=== PATIENT | female | born 1955 | race African-American/Black ===

== ENCOUNTER → 2018-08-07 | Outpatient (CLI) | payer BC ==
[2018-08-07 09:00] VITALS: RESP 20; TEMP 98.2; BMI 39.1
[2018-08-07 09:05] VITALS: BP 200/86; PULSE 66
--- NOTE | 2018-08-07 10:28 | P.HPOB ---
History of Present Illness H&P Date: 08/07/18 Chief Complaint: The patient is here for her routine gynecologic exam. This is a 62-year-old with an LMP of approximately 1994. She is status post endometrial ablation at that time and has been amenorrheic since then. She denies hot flashes or hot flashes in the past. It has been about 13 months since her last pelvic exam. She states she had a mammogram in January 2018. She is without gynecological complaints and denies any postmenopausal bleeding. Review of Systems The patient has gained 8 pounds over the last year. She denies respiratory, cardiac, or G.I. problems. Past Medical History Past Medical History: Diabetes Mellitus (Type II diabetes), Eye Disorder, Hyperlipidemia, Hypertension, Osteoarthritis (OA), Renal Disease (Stage IV chronic renal disease), Sleep Apnea/CPAP/BIPAP Additional Past Medical History / Comment(s): glaucoma, umbilical hernia, arthritis. 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 She has not had any since then. History of Any Multi-Drug Resistant Organisms: None Reported Past Surgical History: Section (x3), Cholecystectomy, Heart Catheterization, Tubal Ligation, Uterine Ablation () Additional Past Surgical History / Comment(s): cervical spine fusion. [id number] (). Past Anesthesia/Blood Transfusion Reactions: Motion Sickness Additional Past Anesthesia/Blood Transfusion Reaction / Comment(s): pt states hard to wake up from anesthesia. 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 - Past Family History Father Family Medical History: Hypertension, Renal Disease Additional Family Medical History / Comment(s): HAD Dialysis Mother Family Medical History: Coronary Artery Disease (CAD), Hypertension, Renal Disease Additional Family Medical History / Comment(s): kidney problems Brother(s) Family Medical History: Cancer, Hypertension Additional Family Medical History / Comment(s): 3 brothers with cancer, one brother had breast cancer, another had bone cancer. Sister(s) Additional Family Medical History / Comment(s): brain anerusym Medications and Allergies Home Medications Medication Instructions Recorded Confirmed Type Lisinopril [Prinivil] 20 mg PO BID 06/08/14 08/07/18 History Rosuvastatin Calcium [Crestor] 5 mg PO Q24HR 07/10/14 08/07/18 History cloNIDine HCL [Catapres] 0.1 mg PO TID PRN 09/30/14 08/07/18 History Carvedilol 25 mg PO BID 10/08/14 08/07/18 History Allopurinol [Zyloprim] 100 mg PO DAILY 08/07/18 08/07/18 History Calcitriol [Rocaltrol] 0.5 mcg PO Q48H 08/07/18 08/07/18 History Chlorthalidone 50 mg PO DAILY 08/07/18 08/07/18 History Latanoprost/Pf [Latanoprost 0.005% 1 drop BOTH EYES HS 08/07/18 08/07/18 History Eye Drop] Repaglinide [Prandin] 0.5 mg PO ONCE 08/07/18 08/07/18 History Allergies Allergy/AdvReac Type Severity Reaction Status Date / Time Sulfa (Sulfonamide Allergy Rash/Hives Verified 08/07/18 08:45 Antibiotics) adhesive AdvReac blisters Verified 08/07/18 08:45 Ggrtqzr-Gmr-Djy Reductase AdvReac Joint Pain Verified 08/07/18 08:45 Inhibitor Exam Vital Signs Temp Pulse Resp BP Pulse Ox 08/07/18 08:53 98.2 F 66 20 200/86 100 Intake and Output 08/06/18 08/07/18 08/07/18 22:59 06:59 14:59 Other: Weight 113.398 kg Repeat blood pressure with the large blood pressure cuff was 158/94. Height 5'7 ", weight 250 pounds, BMI 39.2. This is a well-developed well-nourished heavyset black female who is alert and oriented times 3 in no acute distress. HEENT: Within normal limits. NECK: Supple without mass or thyromegaly. CHEST AND LUNGS: Clear to auscultation. HEART: Regular rate and rhythm. BREASTS: Are without mass or discharge. AXILLARY EXAM: Negative for adenopathy. BACK: Negative for CVA tenderness. ABDOMEN: Soft, nontender, without palpable masses. PELVIC EXAM: Normal external genitalia with mild atrophy. Cervix and vagina appear normal with minimal atrophy. There is no unusual discharge. There is no evidence of prolapse. The uterus is midposition, nongravid size and nontender. There are no palpable adnexal masses or tenderness. RECTAL EXAM: rectovaginal exam is negative for mass or tenderness and is negative for occult blood. EXTREMITIES: Nontender. IMPRESSION: 1. 62-year-old menopausal female with normal gynecologic exam. 2. Elevated blood pressure with history of chronic hypertension. 3. Family history of breast cancer in a brother. PLAN: 1. Pap smear was performed. 2. Self breast awareness was discussed with the patient. 3. The patient states she had a normal mammogram in January 2018. She is to do this yearly. The order slip was given to the patient for this and she will do it in January. 4. Osteoporosis prevention was discussed. I have stressed the importance of adequate calcium, vitamin D and regular exercise. Recommended amounts of calcium and vitamin D were also discussed. Bone density screening was recommended since she has not had this done in the past. The order slip was given to the patient for this. 5. BRCA testing was discussed with the patient because of her brother who had breast cancer. She understands that she is at increased risk for breast cancer because of her family history. She is declining this testing at this time. She will call if she changes her mind. 6. Her elevated blood pressure was discussed. I have recommended that she take her own blood pressure on a regular basis and to follow up with Dr. Guzmán for blood pressure elevations. 7. She will return in one year.
== END ==
LOC: WWCWWP 08:31
PROVIDERS: ATTEND Obstetrics & Gynecology
DX: Z53.9 Procedure and treatment not carried out, unspecified reason (principal)

== ENCOUNTER → 2018-09-21 | Outpatient (CLI) | payer BC ==
--- NOTE | 2018-09-25 17:43 | BD ---
EXAMINATION TYPE: Axial Bone Density DATE OF EXAM: 09/21/2018 COMPARISON: NONE CLINICAL HISTORY: 63 YR OLD FEMALE....ICD10 CODE: Z78.0 POST MENOPAUSAL STATE Height: 65.2 Weight: 246 FRAX RISK QUESTIONS: History of Fracture in Adulthood: YES RISK FACTORS HISTORY OF: History of Wrist Fracture: RT WRIST FX....>50 YRS OLD Family History of Osteoporosis: POSSIBLY MOM, DOWAGER HUMP, NO HIP FX Postmenopausal woman: YES, AT AGE 51 YRS OLD MEDICATIONS: Additional Medications: BP MEDS, DIABETIC MEDS, STATIN FOR CHOLESTEROL, VIT D, CALCIUM Additional History: DIABETIC, HYPERTENSION, CHOLESTEROL EXAM MEASUREMENTS: Bone mineral densitometry was performed using the [employer] System. Bone mineral density as measured about the Lumbar spine is: ----- L1-L4(G/cm2): 1.351 T Score Values are as follows: ----- L1: 1.4 ----- L2: 0.7 ----- L3: 1.6 ----- L4: 1.8 ----- L1-L4: 1.4 Bone mineral density FIRST BONE DENSITY SCAN......BASELINE STUDY Bone mineral density about the R hip (g/cm2): 1.304 Bone mineral density about the L hip (g/cm2): 1.283 T Score values are as follows: -----R Neck: 1.2 -----L Neck: 0.6 -----R Total: 2.4 -----L Total: 2.2 Bone mineral density IS A BASELINE STUDY FRAX%s: THERE IS A 4.0% CHANCE FOR A MAJOR OSTEOPOROTIC FX AND A 0.1% FOR HIP....PROBABILITY OF FX IN 10 YRS TIME IMPRESSION: Normal (Values between +1 and -1 indicate normal bone mass). Consider repeating this study in 5 year s or sooner if there is some new clinical indication. NOTE: T-SCORE=SD OF THE YOUNG ADULT MEAN.
--- NOTE | 2018-09-26 10:32 | P.PN ---
Progress Note - Text Progress Note Date: 09/26/18 OUTPATIENT FOLLOW-UP NOTE TEST(S)/RESULTS: normal bone density test done on 09/21/2018. METHOD OF NOTIFICATION: a message with this result was left on the patient's voicemail. PATIENT COMMENTS: DIAGNOSIS: normal bone density testing DISCUSSION: in the message I reminded her to try to get adequate amounts of calcium, vitamin D and regular exercise. PLAN: repeat bone density testing in 6 to 7 years.
== END | disposition home or self-care (01) ==
LOC: RADBDWWP 10:18
PROVIDERS: ATTEND Obstetrics & Gynecology
DX: Z78.0 Asymptomatic menopausal state (principal)
CPT/HCPCS: 77080

== ENCOUNTER → 2018-09-24 | Outpatient (CLI) | payer BC ==
[2018-09-24 19:32] LABS: Anion Gap 7.2 mmol/L (4.00-12.00); Calcium 9.7 mg/dL (8.7-10.3); Carbon Dioxide 26.8 mmol/L (21.6-31.8); Potassium 4.9 mmol/L (3.5-5.5)
== END | disposition home or self-care (01) ==
LOC: LABWHC1 13:59
PROVIDERS: ATTEND Nurse Practitioner Adult Health
DX: N18.3 Chronic kidney disease, stage 3 (moderate) (principal)
CPT/HCPCS: 36415; 80048

== ENCOUNTER → 2018-11-30 | Day surgery (SDC) | payer BC ==
[2018-11-29 08:23] VITALS: BMI 38.8
[~2018-11-30] MED LIST: LACTATED RINGERS 1,000 ML IV SCH; LIDOCAINE 1% 20 ML VIAL (10MG/ML) FOR IV START INTRADERMA PRN; LIDOCAINE 1% INJ 10MG/ML (20 ML MDV) ONE; PROPOFOL 10 MG/ML 20 ML VIAL IV ONE
[2018-11-30 08:07] VITALS: TEMP 97.2
[2018-11-30 08:15] LABS: Glucose,Whole Blood 112 mg/dL (75-99)
--- NOTE | 2018-11-30 08:48 | P.PCN ---
Date of Procedure: 11/30/18 Procedure(s) Performed: BRIEF HISTORY: Patient is a 63-year-old pleasant -[place] female, scheduled for an elective colonoscopy as a part of evaluation of prior history of colon polyps. Last colonoscopy was 4 years ago. PROCEDURE PERFORMED: Colonoscopy. PREOPERATIVE DIAGNOSIS: History of colon polyps. IV sedation per Anesthesia. PROCEDURE: After informed consent was obtained, the patient, was brought into the endoscopy unit. IV sedation was administered by Anesthesia under continuous monitoring. Digital rectal examination was normal. Initially the Olympus CF-160 flexible video colonoscope was then inserted in the rectum, gradually advanced into the cecum without any difficulty. Careful examination was performed as the scope was gradually being withdrawn. Ileocecal valve and the appendiceal orifice were visualized and appeared normal. Prep was excellent. Mucosa of the cecum, ascending colon, transverse colon, descending colon, sigmoid colon, and rectum appeared normal. Retroflexion was performed in the rectum and no lesions were seen. The patient tolerated the procedure well. IMPRESSION: Normal-appearing colon from rectum to cecum with no evidence of colorectal neoplasia. RECOMMENDATIONS: Findings of this examination were discussed with the patient as well as her family. She was advised to have a repeat surveillance colonoscopy in 5 years..
[2018-11-30 09:19] VITALS: BP 113/70; PULSE 56; RESP 18
== END | disposition home or self-care (01) ==
LOC: ORWHC2ENDO 07:43
PROVIDERS: ATTEND Internal Medicine Gastroenterology
DX: Z12.11 Encounter for screening for malignant neoplasm of colon (principal); Z86.010 Personal history of colon polyps; I10 Essential (primary) hypertension; E78.5 Hyperlipidemia, unspecified; G47.33 Obstructive sleep apnea (adult) (pediatric); Z87.891 Personal history of nicotine dependence; H40.9 Unspecified glaucoma; M10.9 Gout, unspecified; Z98.1 Arthrodesis status; Z79.899 Other long term (current) drug therapy; Z88.5 Allergy status to narcotic agent; Z88.0 Allergy status to penicillin; Z88.8 Allergy status to other drugs, medicaments and biological substances; Z91.09 Other allergy status, other than to drugs and biological substances
CPT/HCPCS: J2001; J2704; G0105; 45378

== ENCOUNTER → 2019-01-29 | Outpatient (CLI) | payer BC ==
[2019-01-29 10:12] LABS: Amorphous Sediment,Urine Rare /hpf; Appearance,Urine Clear (Clear); Bacteria,Urine Rare /hpf; Bilirubin,Urine Negative (Negative); Blood,Urine Negative (Negative); Color,Urine Light Yellow; Glucose,Urine (UA) Negative (Negative); Ketones,Urine Negative (Negative); Leukocyte Esterase,Urine Moderate (Negative); Mucus,Urine Rare /hpf; Nitrite,Urine Negative (Negative); PH, Urine 5.5 (5.0-8.0); Protein,Urine 2+ (Negative); Specific Gravity,Urine 1.011 (1.001-1.035); Squamous Epithelial Cell,Urine 5 /hpf (0-4); Urobilinogen,Urine <2.0 mg/dL (<2.0); WBC,Urine 3 /hpf (0-5)
[2019-01-29 10:17] LABS: Basophils % (A) 1 %; Eosinophils # (A) 0.2 k/uL (0-0.7); Eosinophils % (A) 3 %; HGB 10.8 gm/dL (11.4-16.0); Lymphocytes # (A) 1.6 k/uL (1.0-4.8); Lymphocytes % (A) 24 %; MCH 27.8 pg (25.0-35.0); MCHC 31.6 g/dL (31.0-37.0); MCV 87.8 fL (80.0-100.0); Mean Platelet Volume 6.9; Monocytes # (A) 0.3 k/uL (0-1.0); Monocytes % (A) 5 %; Neutrophils # (A) 4.3 k/uL (1.3-7.7); Neutrophils % (A) 66 %; Platelet Count 233 k/uL (150-450); RBC 3.88 m/uL (3.80-5.40); RDW 15.6 % (11.5-15.5); WBC 6.6 k/uL (3.8-10.6)
[2019-01-29 16:05] LABS: African American GFR (CKD) 24.3 (60.0-200.0); Albumin 3.8 g/dL (3.80-4.90); Albumin/Globulin Ratio 1.46 (1.60-3.17); Anion Gap 9.1 mmol/L (4.00-12.00); BUN/Creat Ratio 16.67 Ratio (12.00-20.00); Calcium 9.2 mg/dL (8.7-10.3); Carbon Dioxide 24.9 mmol/L (21.6-31.8); Globulin 2.6 g/dL (1.6-3.3); Total Bilirubin 0.3 mg/dL (0.3-1.2); Total Protein 6.4 g/dL (6.2-8.2)
[2019-01-29 17:49] LABS: Creatinine,Urine Random 127.9 mg/dL
[2019-01-29 18:22] LABS: Total Protein,Urine Random 151.1 mg/dL (0.0-13.5)
== END | disposition home or self-care (01) ==
LOC: LABWHC1 09:12
PROVIDERS: ATTEND Internal Medicine Nephrology
DX: I12.9 Hypertensive chronic kidney disease with stage 1 through stage 4 chronic kidney disease, or unspecified chronic kidney disease (principal); N18.3 Chronic kidney disease, stage 3 (moderate)
CPT/HCPCS: 36415; 80053; 81001; 82465; 82570; 83970; 84100; 84156; 85025

== ENCOUNTER 2019-03-06 20:06 | Emergency (ER) | payer BC ==
[2019-03-06 20:21] VITALS: BP 164/80; PULSE 68; RESP 18; TEMP 98.6
[2019-03-06] MEDS ORDERED: DIPH,PERTUS(ACELL)TETVAC-LF 0.5 ML VIAL IM ONE (21:12)
[2019-03-06] MEDS ORDERED: ACETAMINOPHEN TAB 325 MG TAB PO STA (21:39)
--- NOTE | 2019-03-06 22:07 | ED ---
General Adult HPI - General Chief complaint: Wound/Laceration Stated complaint: Finger lac, stabbed finger on fork Time Seen by Provider: 03/06/19 20:59 Source: patient Mode of arrival: ambulatory Limitations: no limitations - History of Present Illness Initial comments: Patient is a 63-year-old female presenting to emergency Department with a chief complaint of stabbing finger with a fork. Patient reports she was attempting to scoop up some butter with a forklift when it slipped and it punctured the distal end of her left second digit. The incident occurred approximately one hour ago. Patient reports a small puncture wound. Patient reports minimal pain and denies any numbness or tingling. Patient reports her tetanus status is not up-to-date. Patient has full range of motion in the finger. Patient denies taking medication to alleviate the symptoms. - Related Data Home Medications Medication Instructions Recorded Confirmed Lisinopril [Prinivil] 20 mg PO BID 06/08/14 03/06/19 Rosuvastatin Calcium [Crestor] 5 mg PO DAILY 07/10/14 03/06/19 Carvedilol 25 mg PO BID 10/08/14 03/06/19 Allopurinol [Zyloprim] 100 mg PO DAILY 08/07/18 03/06/19 Calcitriol [Rocaltrol] 0.25 mcg PO Q48H 08/07/18 03/06/19 Chlorthalidone 50 mg PO DAILY 08/07/18 03/06/19 Repaglinide [Prandin] 0.5 mg PO DAILY 08/07/18 03/06/19 amLODIPine [Norvasc] 5 mg PO BID 08/30/18 03/06/19 Previous Rx's Medication Instructions Recorded Cephalexin [Keflex] 500 mg PO BID 5 Days #10 cap 03/06/19 Allergies Allergy/AdvReac Type Severity Reaction Status Date / Time codeine Allergy Nausea Verified 03/06/19 20:53 Sulfa (Sulfonamide Allergy Unknown Verified 03/06/19 20:53 Antibiotics) adhesive AdvReac blisters Verified 03/06/19 20:53 Zmplcik-Jvb-Waf Reductase AdvReac Joint Pain Verified 03/06/19 20:53 Inhibitor Review of Systems ROS Statement: Those systems with pertinent positive or pertinent negative responses have been documented in the HPI. ROS Other: All systems not noted in ROS Statement are negative. Past Medical History Past Medical History: Diabetes Mellitus, Eye Disorder, Hyperlipidemia, Hypertension, Osteoarthritis (OA), Renal Disease, Sleep Apnea/CPAP/BIPAP Additional Past Medical History / Comment(s): glaucoma, not currently using CPAP, hiatal hernia, gout, stage 4 kidney disease History of Any Multi-Drug Resistant Organisms: None Reported Past Surgical History: Back Surgery, Section, Cholecystectomy, Heart Catheterization, Tubal Ligation, Uterine Ablation Additional Past Surgical History / Comment(s): cervical fusion. Past Anesthesia/Blood Transfusion Reactions: Previous Problems w/ Anesthesia, Motion Sickness Additional Past Anesthesia/Blood Transfusion Reaction / Comment(s): pt states hard to wake up from anesthesia. Past Psychological History: No Psychological Hx Reported Smoking Status: Former smoker Past Alcohol Use History: Occasional Past Drug Use History: None Reported - Past Family History Brother(s) Family Medical History: Cancer Additional Family Medical History / Comment(s): 2 brothers with cancer, one brother had breast cancer, another had bone cancer. Sister(s) Additional Family Medical History / Comment(s): brain anerusym General Exam Limitations: no limitations General appearance: alert, in no apparent distress, obese Head exam: Present: atraumatic, normocephalic, normal inspection Eye exam: Present: normal appearance, PERRL, EOMI Pupils: Present: normal accommodation ENT exam: Present: normal exam, mucous membranes moist, normal external ear exam Neck exam: Present: normal inspection, full ROM Respiratory exam: Present: normal lung sounds bilaterally Cardiovascular Exam: Present: regular rate, normal rhythm, normal heart sounds Extremities exam: Present: full ROM, normal capillary refill. Absent: normal inspection (0.5 cm puncture wound on the distal end of the left second digit. Small amounts of active bleeding.), tenderness Back exam: Present: normal inspection, full ROM Neurological exam: Present: alert, oriented X3 Psychiatric exam: Present: normal affect, normal mood Skin exam: Present: warm, intact, normal color Course Vital Signs 03/06/19 20:19 Temperature 98.6 F Pulse Rate 68 Respiratory 18 Rate Blood Pressure 164/80 O2 Sat by Pulse 100 Oximetry Medical Decision Making - Medical Decision Making Patient is 63-year-old female presenting to emergency Department with chief complaint of stabbing the finger with a fork. Patient appears to have a very small insertion point over the puncture wound. No suture repair is needed. The puncture wound was thoroughly irrigated and a dressing was applied. Patient will be discharged with a 5 day course of antibiotic. Strict return parameters were thoroughly discussed with patient was understanding and agreeable. Case discussed with physician. Disposition Clinical Impression: Puncture wound of finger of left hand Disposition: HOME SELF-CARE Condition: Stable Instructions (If sedation given, give patient instructions): Puncture Wound (DC) Additional Instructions: Please take prescribed medication as directed. Please return to emergency department if symptoms worsen. Prescriptions: Cephalexin [Keflex] 500 mg PO BID 5 Days #10 cap Is patient prescribed a controlled substance at d/c from ED?: No Referrals: Jama Guzmán DO [Primary Care Provider] - 1-2 days Time of Disposition: 22:06
== END 2019-03-06 22:22 | disposition home or self-care (01) ==
LOC: EC 20:06
DX: S61.231A Puncture wound without foreign body of left index finger without damage to nail, initial encounter (principal); E78.5 Hyperlipidemia, unspecified; I10 Essential (primary) hypertension; E11.9 Type 2 diabetes mellitus without complications; G47.30 Sleep apnea, unspecified; Z23 Encounter for immunization; Z79.84 Long term (current) use of oral hypoglycemic drugs; Z79.02 Long term (current) use of antithrombotics/antiplatelets; Z79.899 Other long term (current) drug therapy; Z88.5 Allergy status to narcotic agent; Z88.2 Allergy status to sulfonamides; Z91.048 Other nonmedicinal substance allergy status; Z88.8 Allergy status to other drugs, medicaments and biological substances; Z95.5 Presence of coronary angioplasty implant and graft; Z98.1 Arthrodesis status; Z87.891 Personal history of nicotine dependence; Z99.89 Dependence on other enabling machines and devices; W26.8XXA Contact with other sharp object(s), not elsewhere classified, initial encounter; Y92.009 Unspecified place in unspecified non-institutional (private) residence as the place of occurrence of the external cause
CPT/HCPCS: 90471; 90715; 99283

== ENCOUNTER → 2019-05-28 | Outpatient (CLI) | payer BC ==
[2019-05-28 14:36] LABS: Basophils % (A) 1 %; Eosinophils # (A) 0.2 k/uL (0-0.7); Eosinophils % (A) 3 %; HGB 11.2 gm/dL (11.4-16.0); Lymphocytes # (A) 1.7 k/uL (1.0-4.8); Lymphocytes % (A) 25 %; MCH 28.7 pg (25.0-35.0); MCHC 32.8 g/dL (31.0-37.0); MCV 87.4 fL (80.0-100.0); Mean Platelet Volume 5.9; Monocytes # (A) 0.3 k/uL (0-1.0); Monocytes % (A) 5 %; Neutrophils # (A) 4.3 k/uL (1.3-7.7); Neutrophils % (A) 66 %; Platelet Count 258 k/uL (150-450); RBC 3.89 m/uL (3.80-5.40); RDW 15.5 % (11.5-15.5); WBC 6.6 k/uL (3.8-10.6)
[2019-05-28 14:45] LABS: Amorphous Sediment,Urine Rare /hpf; Appearance,Urine Clear (Clear); Bacteria,Urine Rare /hpf; Bilirubin,Urine Negative (Negative); Blood,Urine Negative (Negative); Color,Urine Light Yellow; Glucose,Urine (UA) Negative (Negative); Hyaline Casts,Urine 6 /lpf (0-2); Ketones,Urine Negative (Negative); Leukocyte Esterase,Urine Trace (Negative); Nitrite,Urine Negative (Negative); Protein,Urine 2+ (Negative); RBC,Urine 2 /hpf (0-5); Specific Gravity,Urine 1.011 (1.001-1.035); Squamous Epithelial Cell,Urine 4 /hpf (0-4); Urobilinogen,Urine <2.0 mg/dL (<2.0); WBC,Urine 11 /hpf (0-5)
[2019-05-28 15:09] LABS: Protein/Creatinine Ratio,Urine 2.3
[2019-05-29 00:07] LABS: African American GFR (CKD) 23.1 (60.0-200.0); Albumin/Globulin Ratio 1.54 (1.60-3.17); Anion Gap 9.8 mmol/L (4.00-12.00); BUN/Creat Ratio 18.8 Ratio (12.00-20.00); Calcium 9.5 mg/dL (8.7-10.3); Carbon Dioxide 24.2 mmol/L (21.6-31.8); Globulin 2.6 g/dL (1.6-3.3); Non-African American GFR(CKD) 19.9 (60.0-200.0); Phosphorus 3.7 mg/dL (2.4-5.1); Potassium 4.7 mmol/L (3.5-5.5); Total Bilirubin 0.4 mg/dL (0.3-1.2); Total Protein 6.6 g/dL (6.2-8.2)
== END | disposition home or self-care (01) ==
LOC: LABWHC1 14:14
PROVIDERS: ATTEND Internal Medicine Nephrology
DX: I12.9 Hypertensive chronic kidney disease with stage 1 through stage 4 chronic kidney disease, or unspecified chronic kidney disease (principal); N18.4 Chronic kidney disease, stage 4 (severe)
CPT/HCPCS: 36415; 80053; 81001; 82570; 83970; 84100; 84156; 84550; 85025

== ENCOUNTER → 2019-08-27 | Outpatient (CLI) | payer BC ==
[2019-08-27 12:52] VITALS: BP 173/82; RESP 20; TEMP 98.1
--- NOTE | 2019-08-27 13:37 | P.HPOB ---
History of Present Illness H&P Date: 08/27/19 Chief Complaint: The patient is here for her routine gynecologic exam and ma mmogram. This is a 63-year-old with an LMP of 1994. She is status post endometrial ablation in 1994 and has been amenorrheic since then. The patient is without gynecologic complaints. Review of Systems The patient has gained 3 pounds over the last year. She denies respiratory, cardiac, or G.I. problems. Past Medical History Past Medical History: Diabetes Mellitus, Eye Disorder, Hyperlipidemia, Hypertension, Osteoarthritis (OA), Renal Disease, Sleep Apnea/CPAP/BIPAP Additional Past Medical History / Comment(s): glaucoma, not currently using CPAP, hiatal hernia, gout, stage 4 kidney disease. 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 History of Any Multi-Drug Resistant Organisms: None Reported Past Surgical History: Back Surgery, Section, Cholecystectomy, Heart Catheterization, Tubal Ligation, Uterine Ablation Additional Past Surgical History / Comment(s): cervical fusion. 3. Endometrial ablation in 1994. Colonoscopy 2019(3rd, next after 5yr) Past Anesthesia/Blood Transfusion Reactions: Previous Problems w/ Anesthesia, Motion Sickness Additional Past Anesthesia/Blood Transfusion Reaction / Comment(s): pt states hard to wake up from anesthesia. Past Psychological History: No Psychological Hx Reported Smoking Status: Former smoker Past Alcohol Use History: Rare (4 per year) Additional Past Alcohol Use History / Comment(s): quit smoking in her 20s, smoked less than 1ppd for 5 yrs Past Drug Use History: None Reported Additional History: She has been since 1976 and is retired. - Past Family History Brother(s) Family Medical History: Cancer Additional Family Medical History / Comment(s): 2 brothers with cancer, one brother had breast cancer, another had bone cancer. Sister(s) Additional Family Medical History / Comment(s): brain anerusym Medications and Allergies Home Medications Medication Instructions Recorded Confirmed Type Lisinopril [Prinivil] 20 mg PO BID 06/08/14 08/27/19 History Rosuvastatin Calcium [Crestor] 5 mg PO DAILY 07/10/14 08/27/19 History Carvedilol 25 mg PO BID 10/08/14 08/27/19 History Allopurinol [Zyloprim] 100 mg PO DAILY 08/07/18 08/27/19 History Calcitriol [Rocaltrol] 0.25 mcg PO Q48H 08/07/18 08/27/19 History Repaglinide [Prandin] 0.5 mg PO TID 08/07/18 08/27/19 History amLODIPine [Norvasc] 5 mg PO BID 08/30/18 08/27/19 History Allergies Allergy/AdvReac Type Severity Reaction Status Date / Time codeine Allergy Nausea Verified 08/27/19 12:44 Sulfa (Sulfonamide Allergy Unknown Verified 08/27/19 12:44 Antibiotics) adhesive AdvReac blisters Verified 08/27/19 12:44 Hibhbpw-Uap-Kio Reductase AdvReac Joint Pain Verified 08/27/19 12:44 Inhibitor Exam Vital Signs Temp Resp BP Pulse Ox 08/27/19 12:47 98.1 F 20 173/82 100 Intake and Output 08/26/19 08/27/19 08/27/19 22:59 06:59 14:59 Other: Weight 114.759 kg Height 5 feet 6 inches, weight 253 pounds, BMI 40.8 This is a well-developed well-nourished heavyset black female who is alert and oriented times 3 in no acute distress. HEENT: Within normal limits. NECK: Supple without mass or thyromegaly. CHEST AND LUNGS: Clear to auscultation. HEART: Regular rate and rhythm. BREASTS: Are without mass or discharge. AXILLARY EXAM: Negative for adenopathy. BACK: Negative for CVA tenderness. ABDOMEN: Soft, obese, nontender, without palpable masses. PELVIC EXAM: Normal external genitalia with mild atrophy. Cervix and vagina appear normal with mild atrophy. There is no unusual discharge. There is no evidence of prolapse. The uterus is midposition, nongravid size and nontender. There are no palpable adnexal masses or tenderness. RECTAL EXAM: Rectovaginal exam is negative for mass or tenderness and is negative for occult blood. EXTREMITIES: Nontender. IMPRESSION: 1. 63-year-old menopausal female with normal gynecologic exam. 2. Elevated blood pressure with history of chronic hypertension. PLAN: 1. Pap smear was deferred since she had a normal one on 08/07/2018. 2. Self breast awareness was discussed with the patient. 3. Screening mammogram will be done today. 4. We have discussed her elevated blood pressure and I have recommended that she check her blood pressure on a daily basis. She is to follow up with Dr. Guzmán for blood pressure elevations. 5. Osteoporosis prevention was discussed. Her bone density test on 09/21/2018 was normal. This will be repeated in approximately 5-6 years. 6. She was advised to return in one year for her annual well woman exam.
--- NOTE | 2019-08-29 12:31 | MM ---
Reason for exam: screening (asymptomatic). Last mammogram was performed 1 year and 6 months ago. History: Patient is postmenopausal. Family history of breast cancer in brother at age 60. Physical Findings: A clinical breast exam by your physician is recommended on an annual basis and results should be correlated with mammographic findings. MG 3D Screening Mammo W/Cad Bilateral CC and MLO view(s) were taken. Prior study comparison: February 12, 2018, mammogram, performed at [facility]. October 08, 2015, mammogram, performed at [facility]. There are scattered fibroglandular densities. No suspicious abnormality. No significant changes when compared with prior studies. ASSESSMENT: Negative, BI-RAD 1 RECOMMENDATION: Routine screening mammogram of both breasts in 1 year.
== END | disposition home or self-care (01) ==
LOC: WWCWWP 12:33
PROVIDERS: ATTEND Obstetrics & Gynecology
DX: Z12.31 Encounter for screening mammogram for malignant neoplasm of breast (principal)
CPT/HCPCS: 77063; 77067

== ENCOUNTER → 2020-05-11 | Outpatient (CLI) | payer BC ==
--- NOTE | 2020-05-11 12:59 | US ---
EXAMINATION TYPE: US venous doppler duplex UE LT DATE OF EXAM: 05/11/2020 COMPARISON: NONE CLINICAL HISTORY: M79.632 PAIN IN LT FOREARM. SIDE PERFORMED: Left Arm: Negative for DVT IMPRESSION: Grayscale, color doppler, spectral doppler imaging performed of the deep veins of the upper extremiti es. There is normal flow, compressability and vascular waveforms.
== END | disposition home or self-care (01) ==
LOC: RADUSWWP 12:11
PROVIDERS: ATTEND Family Medicine
DX: M79.632 Pain in left forearm (principal)

== ENCOUNTER → 2021-01-12 | Outpatient (CLI) | payer BC ==
[2021-01-12 16:21] VITALS: BP 159/75; PULSE 71; RESP 18; TEMP 98.4
--- NOTE | 2021-01-12 17:13 | P.HPOB ---
History of Present Illness H&P Date: 01/12/21 Chief Complaint: The patient is here for her routine gynecologic exam. This is a 65-year-old with an LMP of 1994. The patient is without gynecologic complaints and denies any postmenopausal bleeding. She has been amenorrheic since her 1994 endometrial ablation. She states she is looking into having a kidney transplant for chronic renal failure. The [facility] is requesting gynecologic evaluation and Pap smear. Review of Systems The patient has lost 13 pounds over the last year. She denies respiratory, cardiac, or G.I. problems. Past Medical History Past Medical History: Diabetes Mellitus, Eye Disorder, Hyperlipidemia, Hypertension, Osteoarthritis (OA), Renal Disease, Sleep Apnea/CPAP/BIPAP Additional Past Medical History / Comment(s): glaucoma, not currently using CPAP, hiatal hernia, gout, stage 4 renal failure. 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 History of Any Multi-Drug Resistant Organisms: None Reported Past Surgical History: Back Surgery, Section, Cholecystectomy, Heart Catheterization, Tubal Ligation, Uterine Ablation Additional Past Surgical History / Comment(s): cervical fusion. 3. Endometrial ablation in 1994. Colonoscopy 2019(3rd, next after 5yr) Past Anesthesia/Blood Transfusion Reactions: Previous Problems w/ Anesthesia, Motion Sickness Additional Past Anesthesia/Blood Transfusion Reaction / Comment(s): pt states hard to wake up from anesthesia. Past Psychological History: No Psychological Hx Reported Smoking Status: Former smoker Past Alcohol Use History: Rare (Less than 4 per year.) Additional Past Alcohol Use History / Comment(s): quit smoking in her 20s, smoked less than 1ppd for 5 yrs Past Drug Use History: None Reported Additional History: She has been since 1976 and is retired. She states she is not sexually active. - Past Family History Brother(s) Family Medical History: Cancer Additional Family Medical History / Comment(s): 2 brothers with cancer, one brother had breast cancer, another had bone cancer. Sister(s) Additional Family Medical History / Comment(s): brain anerusym Medications and Allergies Home Medications Medication Instructions Recorded Confirmed Type Carvedilol 25 mg PO BID 10/08/14 08/27/19 History allopurinoL [Zyloprim] 100 mg PO DAILY 08/07/18 01/12/21 History calcitrioL [Rocaltrol] 0.25 mcg PO Q48H 08/07/18 01/12/21 History amLODIPine [Norvasc] 5 mg PO BID 08/30/18 01/12/21 History Alirocumab [Praluent Pen] 150 mg SQ DAILY 01/12/21 01/12/21 History Darbepoetin Daren [Aranesp] 100 mcg IJ DAILY 01/12/21 01/12/21 History Furosemide [Lasix] 80 mg PO DAILY 01/12/21 01/12/21 History Isosorbide Mononitrate [Isosorbide 30 mg PO DAILY 01/12/21 01/12/21 History Mononitrate ER] hydrALAZINE HCL 50 mg PO BID 01/12/21 01/12/21 History Allergies Allergy/AdvReac Type Severity Reaction Status Date / Time codeine Allergy Nausea Verified 01/12/21 15:59 Sulfa (Sulfonamide Allergy Unknown Verified 01/12/21 15:59 Antibiotics) adhesive AdvReac blisters Verified 01/12/21 15:59 Suwpjcy-Yod-Zrr Reductase AdvReac Joint Pain Verified 01/12/21 15:59 Inhibitor Exam Vital Signs Temp Pulse Resp BP Pulse Ox 01/12/21 16:15 98.4 F 71 18 159/75 99 Intake and Output 01/12/21 01/12/21 01/12/21 06:59 14:59 22:59 Other: Weight 108.862 kg Height 5 feet 5 inches, weight 240 pounds, BMI 39.9. This is a well-developed well-nourished heavyset black female who is alert and oriented times 3 in no acute distress. HEENT: Within normal limits. NECK: Supple without mass or thyromegaly. CHEST AND LUNGS: Clear to auscultation. HEART: Regular rate and rhythm. BREASTS: Are without mass or discharge. AXILLARY EXAM: Negative for adenopathy. BACK: Negative for CVA tenderness. ABDOMEN: Soft, nontender, without palpable masses. PELVIC EXAM: Normal external genitalia with mild atrophy. Cervix and vagina appear normal with mild atrophy. The cervix is somewhat stenotic secondary to atrophy. There is no unusual discharge. There is no evidence of prolapse. The uterus is midposition, nongravid size and nontender. There are no palpable adnexal masses or tenderness. RECTAL EXAM: Rectovaginal exam is negative for mass or tenderness and is negative for occult blood. EXTREMITIES: Nontender. IMPRESSION: 1. 65-year-old menopausal female with normal gynecologic exam. 2. Elevated blood pressure with history of chronic hypertension and chronic renal disease. PLAN: 1. Pap smear was performed. 2. Self breast awareness was discussed with the patient. 3. Screening mammogram was done in September 2020 and was normal per the patient. Her last mammogram was done outside of this area, closer to her home. She gets mammogram orders from Dr. Guzmán, her PCP. She will repeat this after 1 year. 4. Osteoporosis prevention was discussed. I have stressed the importance of adequate calcium, vitamin D and regular exercise. Recommended amounts of calcium and vitamin D were also discussed. Bone density test was done on 09/21/2018 and was normal. She will repeat this again in about 4 years. 5. She has completed her Covid vaccination series. 6. We have discussed her elevated blood pressure. I have strongly recommended that she check her own blood pressure on a regular basis and follow-up with her PCP and hotel front desk agent for blood pressure elevations. 7. She was advised to return in one year for her annual well woman exam.
== END ==
LOC: WWCWWP 15:55
PROVIDERS: ATTEND Obstetrics & Gynecology
DX: Z01.419 Encounter for gynecological examination (general) (routine) without abnormal findings (principal); E11.22 Type 2 diabetes mellitus with diabetic chronic kidney disease; E78.5 Hyperlipidemia, unspecified; I12.9 Hypertensive chronic kidney disease with stage 1 through stage 4 chronic kidney disease, or unspecified chronic kidney disease; M19.90 Unspecified osteoarthritis, unspecified site; N18.9 Chronic kidney disease, unspecified; Z87.891 Personal history of nicotine dependence; Z88.8 Allergy status to other drugs, medicaments and biological substances; Z88.2 Allergy status to sulfonamides; Z88.5 Allergy status to narcotic agent; Z91.040 Latex allergy status

== ENCOUNTER → 2024-03-28 | Outpatient (CLI) | payer BC, MEDICARE ==
[2024-03-28 15:29] LABS: Basophils # (A) 0.03 X 10*3/uL (0.00-0.10); Basophils % (A) 0.5 %; Eosinophils # (A) 0.05 X 10*3/uL (0.04-0.35); Eosinophils % (A) 0.8 %; HCT 41.3 % (37.2-46.3); HGB 13.1 g/dL (12.0-15.0); Lymphocytes # (A) 0.12 X 10*3/uL (0.90-5.00); MCHC 31.7 g/dL (32.0-37.0); MCV 91.6 FL (80.0-97.0); Mean Platelet Volume 11.4 FL (9.5-12.2); Monocytes # (A) 0.75 X 10*3/uL (0.20-1.00); Monocytes % (A) 12.3 %; NRBC Per 100 WBC 0 X 10*3/uL (0.00-0.01); Neutrophils # (A) 5.14 X 10*3/uL (1.80-7.70); Neutrophils % (A) 83.9 %; Platelet Count 190 X 10*3/uL (140-440); RBC 4.51 X 10*6/uL (4.10-5.20); RDW 14.4 % (11.5-14.5); WBC 6.12 X 10*3/uL (4.50-10.00)
[2024-03-28 18:12] LABS: ALT 15 U/L (8-44); AST 17 U/L (13-35); Albumin 4.3 g/dL (3.8-4.9); Albumin/Globulin Ratio 1.87 Ratio (1.60-3.17); Alkaline Phosphatase 83 U/L (41-126); BUN/Creat Ratio 13.54 Ratio (12.00-20.00); Bilirubin, Conjugated <0.20 mg/dL (0.20-0.40); Bilirubin,Unconjugated >0.20 mg/dL (0.20-1.00); Blood Urea Nitrogen 17.6 mg/dL (9.0-27.0); Calcium 10.2 mg/dL (8.7-10.3); Carbon Dioxide 26.3 mmol/L (21.6-31.8); Chloride 103 mmol/L (96-109); Chol/HDL Ratio 2.94 Ratio; Globulin 2.3 g/dL (1.6-3.3); Glucose 120 mg/dL (70-110); LDL Cholesterol,Calculated 70.4 mg/dL (0.0-131.0); Magnesium 1.8 mg/dL (1.5-2.4); Phosphorus 2.6 mg/dL (2.4-5.1); Potassium 4.2 mmol/L (3.5-5.5); Sodium 142 mmol/L (135-145); Total Bilirubin 0.4 mg/dL (0.3-1.2); Total Protein 6.6 g/dL (6.2-8.2); Uric Acid 5.2 mg/dL (2.9-7.7)
[2024-03-29 12:52] LABS: Tacrolimus (FK506) 5.2 ng/mL (5.0-20.0)
[2024-03-29 14:04] LABS: BK Virus DNA PCR, Qualitative Not detected (Not detected); BKV DNA (PCR), Quant <125 Copies/mL (<125); LOG BKV Copies/mL <2.10 (<2.10)
== END | disposition home or self-care (01) ==
LOC: LABWHC1 10:29
PROVIDERS: ATTEND Internal Medicine Nephrology
DX: Z48.22 Encounter for aftercare following kidney transplant (principal); Z79.899 Other long term (current) drug therapy; Z94.0 Kidney transplant status
CPT/HCPCS: 36415; 80053; 80061; 80197; 82248; 83036; 83735; 84100; 84550; 85025

== ENCOUNTER 2024-05-06 10:42 | Observation (INO) | payer MEDICARE ==
--- NOTE | 2024-05-06 12:20 | ED ---
Dizziness HPI - General Chief Complaint: Dizziness Stated Complaint: SOB,dizziness Time Seen by Provider: 05/06/24 11:00 Source: patient, RN notes reviewed Mode of arrival: ambulatory Limitations: no limitations - History of Present Illness Initial Comments: This is a 68-year-old female with history of DM and hypertension presenting with dizziness and shortness of breath x 7 days. Patient states dizziness is intermittent and worsens with exertion and is often worse in the morning. Patient also endorses occasional dry cough. Denies associated vertigo, chest pain, radiating pain, pallor, sweating, syncope, paresthesia, ataxia. Endorses recent history of kidney transplant. States symptoms started shortly after beginning glaucoma eyedrop medication. Denies fever, chills, fatigue, body aches, abdominal pain, N/V/D. MD Complaint: dizziness Onset/Timin -: days(s) Timing: gradual onset Description: sense of movement, lightheadedness, off-balance History of Same: No History of Trauma: No Improves With: remaining still Worsens With: exertion Associated Symptoms: cough, shortness of breath - Related Data Home Medications Medication Instructions Recorded Confirmed Carvedilol 25 mg PO BID 10/08/14 05/06/24 Isosorbide Mononitrate [Isosorbide 30 mg PO DAILY 01/12/21 05/06/24 Mononitrate ER] Aspirin EC [Ecotrin Low Dose] 81 mg PO DAILY 05/06/24 05/06/24 Doxazosin [Cardura] 2 mg PO HS 05/06/24 05/06/24 Ergocalciferol (Vitamin D2) 1,250 mcg PO Q30D 05/06/24 05/06/24 [Drisdol (50,000 Iu)] Evolocumab [Repatha Sureclick] 140 mg SQ Q14D 05/06/24 05/06/24 Famotidine [Pepcid] 20 mg PO DAILY 05/06/24 05/06/24 Furosemide [Lasix] 40 mg PO DAILY 05/06/24 05/06/24 Insulin Glargine,Hum.rec.anlog 27 units SQ DAILY 05/06/24 05/06/24 [Lantus Solostar Pen] Latanoprost [Latanoprost 0.005%] 1 drop BOTH EYES HS 05/06/24 05/06/[address] [Myfortic] 720 mg PO BID 05/06/24 05/06/24 Tacrolimus [Envarsus Xr] 1.5 mg PO DAILY 05/06/24 05/06/24 Tacrolimus [Envarsus Xr] 2 mg PO DAILY 05/06/24 05/06/24 Tacrolimus [Envarsus Xr] 4 mg PO DAILY 05/06/24 05/06/24 amLODIPine [Norvasc] 10 mg PO HS 05/06/24 05/06/24 predniSONE 10 mg PO DAILY 05/06/24 05/06/24 Allergies Allergy/AdvReac Type Severity Reaction Status Date / Time codeine Allergy Nausea Verified 05/06/24 12:49 Sulfa (Sulfonamide Allergy Rash/Hives Verified 05/06/24 12:49 Antibiotics) adhesive AdvReac blisters Verified 05/06/24 12:49 Kykxffs-OFW-VsY Reductase AdvReac Joint Pain Verified 05/06/24 12:49 Inhibitor [Bwhiwso-Ppg-Ito Reductase Inhibitor] Review of Systems ROS Statement: Those systems with pertinent positive or pertinent negative responses have been documented in the HPI. ROS Other: All systems not noted in ROS Statement are negative. Past Medical History Past Medical History: Diabetes Mellitus, Eye Disorder, Hyperlipidemia, Hypertension, Osteoarthritis (OA), Renal Disease, Sleep Apnea/CPAP/BIPAP Additional Past Medical History / Comment(s): glaucoma, not currently using CPAP, hiatal hernia, gout, stage 4 renal failure. 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 History of Any Multi-Drug Resistant Organisms: None Reported Past Surgical History: Back Surgery, Section, Cholecystectomy, Heart Ca theterization, Tubal Ligation, Uterine Ablation Additional Past Surgical History / Comment(s): cervical fusion. 3. Endometrial ablation in 1994. Colonoscopy 2019(3rd, next after 5yr) kidney transplant 05/25/23 Past Anesthesia/Blood Transfusion Reactions: Previous Problems w/ Anesthesia, Motion Sickness Additional Past Anesthesia/Blood Transfusion Reaction / Comment(s): pt states hard to wake up from anesthesia. Past Psychological History: No Psychological Hx Reported Smoking Status: Former smoker Past Alcohol Use History: Rare Past Drug Use History: None Reported - Past Family History Brother(s) Family Medical History: Cancer Additional Family Medical History / Comment(s): 2 brothers with cancer, one brother had breast cancer, another had bone cancer. Sister(s) Additional Family Medical History / Comment(s): brain anerusym General Exam Limitations: no limitations General appearance: alert, in no apparent distress Head exam: Present: atraumatic, normocephalic, normal inspection Eye exam: Present: normal appearance, PERRL, EOMI, other (Hints exam was negative for all test.). Absent: scleral icterus, conjunctival injection, nystagmus, periorbital swelling ENT exam: Present: normal exam, mucous membranes moist Neck exam: Present: normal inspection. Absent: tenderness, meningismus, lymphadenopathy Respiratory exam: Present: normal lung sounds bilaterally. Absent: respiratory distress, wheezes, rales, rhonchi, stridor Cardiovascular Exam: Present: regular rate, normal rhythm, normal heart sounds. Absent: systolic murmur, diastolic murmur, rubs, gallop, clicks GI/Abdominal exam: Present: soft, normal bowel sounds. Absent: distended, tenderness, guarding, rebound, rigid Extremities exam: Present: normal inspection, full ROM, normal capillary refill. Absent: tenderness, pedal edema, joint swelling, calf tenderness Back exam: Present: normal inspection Neurological exam: Present: alert, oriented X3, CN II-XII intact, other ([place] stroke negative) Psychiatric exam: Present: normal affect, normal mood Skin exam: Present: warm, dry, intact, normal color. Absent: rash Course Vital Signs 05/06/24 05/06/24 05/06/24 11:10 11:40 15:09 Temperature 98.9 F Pulse Rate 79 79 77 Respiratory 16 18 16 Rate Blood Pressure 191/82 168/78 132/74 O2 Sat by Pulse 98 96 96 Oximetry 05/06/24 17:54 Temperature Pulse Rate 71 Respiratory 16 Rate Blood Pressure 172/74 O2 Sat by Pulse 94 L Oximetry Medical Decision Making - Medical Decision Making Was pt. sent in by a medical professional or institution (, PA, MEDICAL RECORD LIBRARIANS TEACHER, urgent care, hospital, or snf...) When possible be specific @ -[No] Did you speak to anyone other than the patient for history (EMS, parent, family, police, friend...)? What history was obtained from this source @ -[No] Did you review nursing and triage notes (agree or disagree)? Why? @ -[I reviewed and agree with nursing and triage notes] Were old charts reviewed (outside hosp., previous admission, EMS record, old EKG, old radiological studies, urgent care reports/EKG's, snf records)? Report findings @ -[No old charts were reviewed] Differential Diagnosis (chest pain, altered mental status, abdominal pain women, abdominal pain men, vaginal bleeding, weakness, fever, dyspnea, syncope, headache, dizziness, GI bleed, back pain, seizure, CVA, palpatations, mental health, musculoskeletal)? @ -Differential Dizziness: Benign paroxysmal positional Vertigo, Meniere's disease, otitis media, acoustic neuroma, vertebrobasilar insufficiency, cerebellar stroke, encephalitis, hypovolemic, arrhythmia, coronary artery syndrome, anemia, this is not meant to be an all-inclusive list EKG interpreted by me (3pts min.). @ -Sinus rhythm with solitary PVC and occasional PAC. New T wave inversion only in aVF compared to prior EKG. Otherwise no ST changes or diffuse T wave inversion. Ventricular rate 80 bpm, KRISTI 152 ms, QRS duration 89 ms, QTc 415 ms. X-rays interpreted by me (1pt min.). @ -Chest x-ray shows no cardiomegaly, pulmonary edema, curly B-lines or focal infiltrates. CT interpreted by me (1pt min.). @ -[None done] U/S interpreted by me (1pt. min.). @ -[None done] What testing was considered but not performed or refused? (CT, X-rays, U/S, labs)? Why? @ -[None] What meds were considered but not given or refused? Why? @ -[None] Did you discuss the management of the patient with other professionals (professionals i.e. , PA, MEDICAL RECORD LIBRARIANS TEACHER, lab, RT, psych nurse, social media marketing analyst, mechanical shovel operator, teacher, wildlife officer, cyanide case hardener)? Give summary @ -He has spoke to Dr. Servin, requested bilateral lower extremity Doppler ult rasounds, VQ scan for chest and echocardiogram. Was smoking cessation discussed for >3mins.? @ -[No] Was critical care preformed (if so, how long)? @ -[No] Were there social determinants of health that impacted care today? How? (Homelessness, low income, unemployed, alcoholism, drug addiction, trans portation, low edu. Level, literacy, decrease access to med. care, correction, rehab)? @ -[No] Was there de-escalation of care discussed even if they declined (Discuss DNR or withdrawal of care, Hospice)? DNR status @ -[No] What co-morbidities impacted this encounter? (DM, HTN, Smoking, COPD, CAD, Cancer, CVA, ARF, Chemo, Hep., AIDS, mental health diagnosis, sleep apnea, morbid obesity)? @ -DM, hypertension Was patient admitted / discharged? Hospital course, mention meds given and route, prescriptions, significant lab abnormalities, going to OR and other pertinent info. @ -Admitted. Twelve-lead, lab work and chest x-ray were largely unremarkable. Due to severity of patient's symptoms preventing normal day-to-day living without significant interference, patient was admitted for observation and further workup. Upon Dr. Servin's request bilateral lower extremity Doppler ultrasound, chest VQ scan and echocardiogram ordered as patient awaits admission for observation. Undiagnosed new problem with uncertain prognosis? @ -[No] Drug Therapy requiring intensive monitoring for toxicity (Heparin, Nitro, Insulin, Cardizem)? @ -[No] Were any procedures done? @ -[No] Diagnosis/symptom? @ -Dyspnea and dizziness with exertion Acute, or Chronic, or Acute on Chronic? @ -Acute Uncomplicated (without systemic symptoms) or Complicated (systemic symptoms)? @ -Complicated Side effects of treatment? @ -[No] Exacerbation, Progression, or Severe Exacerbation? @ -Exacerbation Poses a threat to life or bodily function? How? (Chest pain, [place], NC, pneumonia, PE, COPD, DKA, ARF, appy, cholecystitis, CVA, Diverticulitis, Homicidal, Suicidal, threat to staff... and all critical care pts) @ -[No] - Lab Data Result diagrams: 05/06/24 12:41 05/06/24 12:41 Lab Results 05/06/24 05/06/24 05/06/24 Range/Units 12:41 12:41 12:41 WBC 9.8 (3.8-10.6) k/uL RBC 4.57 (3.80-5.40) m/uL Hgb 13.1 (11.4-16.0) gm/dL Hct 40.6 (34.0-46.0) % MCV 88.8 (80.0-100.0) fL MCH 28.7 (25.0-35.0) pg MCHC 32.3 (31.0-37.0) g/dL RDW 14.8 (11.5-15.5) % Plt Count 195 (150-450) k/uL MPV 7.6 Neutrophils % 91 % Lymphocytes % 1 % Monocytes % 4 % Eosinophils % 1 % Basophils % 0 % Neutrophils # 8.9 H (1.3-7.7) k/uL Lymphocytes # 0.1 L (1.0-4.8) k/uL Monocytes # 0.4 (0-1.0) k/uL Eosinophils # 0.1 (0-0.7) k/uL Basophils # 0.0 (0-0.2) k/uL PT 10.7 (10.0-12.5) sec INR 1.0 (<1.2) APTT 26.1 (22.0-30.0) sec D-Dimer (<0.60) mg/L FEU Sodium 133 L (137-145) mmol/L Potassium 4.0 (3.5-5.1) mmol/L Chloride 102 (98-107) mmol/L Carbon Dioxide 26 (22-30) mmol/L Anion Gap 5 mmol/L BUN 22 H (7-17) mg/dL Creatinine 1.33 H (0.52-1.04) mg/dL Est GFR (CKD-EPI)AfAm 48 (>60 ml/min/1.73 sqM) Est GFR (CKD-EPI)NonAf 41 (>60 ml/min/1.73 sqM) Glucose 196 H (74-99) mg/dL Calcium 9.7 (8.4-10.2) mg/dL Total Bilirubin 0.7 (0.2-1.3) mg/dL AST 19 (14-36) U/L ALT 12 (4-34) U/L Alkaline Phosphatase 83 (38-126) U/L Troponin I (0.000-0.034) ng/mL NT-Pro-B Natriuret Pep pg/mL Total Protein 6.2 L (6.3-8.2) g/dL Albumin 3.6 (3.5-5.0) g/dL Influenza Type A (PCR) (Not Detectd) Influenza Type B (PCR) (Not Detectd) RSV (PCR) (Not Detectd) SARS-CoV-2 (PCR) (Not Detectd) 05/06/24 05/06/24 05/06/24 Range/Units 12:41 12:42 14:15 WBC (3.8-10.6) k/uL RBC (3.80-5.40) m/uL Hgb (11.4-16.0) gm/dL Hct (34.0-46.0) % MCV (80.0-100.0) fL MCH (25.0-35.0) pg MCHC (31.0-37.0) g/dL RDW (11.5-15.5) % Plt Count (150-450) k/uL MPV Neutrophils % % Lymphocytes % % Monocytes % % Eosinophils % % Basophils % % Neutrophils # (1.3-7.7) k/uL Lymphocytes # (1.0-4.8) k/uL Monocytes # (0-1.0) k/uL Eosinophils # (0-0.7) k/uL Basophils # (0-0.2) k/uL PT (10.0-12.5) sec INR (<1.2) APTT (22.0-30.0) sec D-Dimer 3.19 H (<0.60) mg/L FEU Sodium (137-145) mmol/L Potassium (3.5-5.1) mmol/L Chloride (98-107) mmol/L Carbon Dioxide (22-30) mmol/L Anion Gap mmol/L BUN (7-17) mg/dL Creatinine (0.52-1.04) mg/dL Est GFR (CKD-EPI)AfAm (>60 ml/min/1.73 sqM) Est GFR (CKD-EPI)NonAf (>60 ml/min/1.73 sqM) Glucose (74-99) mg/dL Calcium (8.4-10.2) mg/dL Total Bilirubin (0.2-1.3) mg/dL AST (14-36) U/L ALT (4-34) U/L Alkaline Phosphatase (38-126) U/L Troponin I 0.014 (0.000-0.034) ng/mL NT-Pro-B Natriuret Pep pg/mL Total Protein (6.3-8.2) g/dL Albumin (3.5-5.0) g/dL Influenza Type A (PCR) Not Detected (Not Detectd) Influenza Type B (PCR) Not Detected (Not Detectd) RSV (PCR) Not Detected (Not Detectd) SARS-CoV-2 (PCR) Not Detected (Not Detectd) 05/06/24 Range/Units 14:15 WBC (3.8-10.6) k/uL RBC (3.80-5.40) m/uL Hgb (11.4-16.0) gm/dL Hct (34.0-46.0) % MCV (80.0-100.0) fL MCH (25.0-35.0) pg MCHC (31.0-37.0) g/dL RDW (11.5-15.5) % Plt Count (150-450) k/uL MPV Neutrophils % % Lymphocytes % % Monocytes % % Eosinophils % % Basophils % % Neutrophils # (1.3-7.7) k/uL Lymphocytes # (1.0-4.8) k/uL Monocytes # (0-1.0) k/uL Eosinophils # (0-0.7) k/uL Basophils # (0-0.2) k/uL PT (10.0-12.5) sec INR (<1.2) APTT (22.0-30.0) sec D-Dimer (<0.60) mg/L FEU Sodium (137-145) mmol/L Potassium (3.5-5.1) mmol/L Chloride (98-107) mmol/L Carbon Dioxide (22-30) mmol/L Anion Gap mmol/L BUN (7-17) mg/dL Creatinine (0.52-1.04) mg/dL Est GFR (CKD-EPI)AfAm (>60 ml/min/1.73 sqM) Est GFR (CKD-EPI)NonAf (>60 ml/min/1.73 sqM) Glucose (74-99) mg/dL Calcium (8.4-10.2) mg/dL Total Bilirubin (0.2-1.3) mg/dL AST (14-36) U/L ALT (4-34) U/L Alkaline Phosphatase (38-126) U/L Troponin I (0.000-0.034) ng/mL NT-Pro-B Natriuret Pep 598 pg/mL Total Protein (6.3-8.2) g/dL Albumin (3.5-5.0) g/dL Influenza Type A (PCR) (Not Detectd) Influenza Type B (PCR) (Not Detectd) RSV (PCR) (Not Detectd) SARS-CoV-2 (PCR) (Not Detectd) Disposition Clinical Impression: Dizziness Disposition: ADMITTED IP TO THIS [facility] Condition: Good Is patient prescribed a controlled substance at d/c from ED?: No Time of Disposition: 14:03 Decision Date: 05/06/24 Decision Time: 14:03
[2024-05-06 12:59] LABS: Basophils % (A) 0 %; Eosinophils # (A) 0.1 k/uL (0-0.7); Eosinophils % (A) 1 %; HCT 40.6 % (34.0-46.0); HGB 13.1 gm/dL (11.4-16.0); Lymphocytes # (A) 0.1 k/uL (1.0-4.8); Lymphocytes % (A) 1 %; MCH 28.7 pg (25.0-35.0); MCHC 32.3 g/dL (31.0-37.0); MCV 88.8 fL (80.0-100.0); Mean Platelet Volume 7.6; Monocytes # (A) 0.4 k/uL (0-1.0); Monocytes % (A) 4 %; Neutrophils # (A) 8.9 k/uL (1.3-7.7); Neutrophils % (A) 91 %; Platelet Count 195 k/uL (150-450); RBC 4.57 m/uL (3.80-5.40); RDW 14.8 % (11.5-15.5); WBC 9.8 k/uL (3.8-10.6)
--- NOTE | 2024-05-06 13:06 | XR ---
EXAMINATION TYPE: XR chest 2V DATE OF EXAM: 05/06/2024 1:00 PM COMPARISON: Chest radiographs from 05/09/2015 CLINICAL INDICATION: Female, 68 years old with history of Shortness of breath, cough; TECHNIQUE: XR chest 2V Frontal and lateral views of the chest. FINDINGS: Lungs/Pleura: There is no evidence of pleural effusion, focal consolidation, or pneumothorax. Pulmonary vascularity: Unremarkable. Heart/mediastinum: Cardiomediastinal silhouette is unremarkable. Musculoskeletal: No acute osseous pathology. There is fixation hardware in the lower cervical spine. IMPRESSION: No acute cardiopulmonary disease/process. [facility], , 05/06/2024 1:04 PM
[2024-05-06 13:16] LABS: Partial Thromboplastin Time 26.1 sec (22.0-30.0); Prothrombin Time 10.7 sec (10.0-12.5)
[2024-05-06 13:24] LABS: ALT 12 U/L (4-34); AST 19 U/L (14-36); African American GFR (CKD) 48 (>60 ml/min/1.73 sqM); Albumin 3.6 g/dL (3.5-5.0); Alkaline Phosphatase 83 U/L (38-126); Anion Gap 5 mmol/L; Blood Urea Nitrogen 22 mg/dL (7-17); Calcium 9.7 mg/dL (8.4-10.2); Carbon Dioxide 26 mmol/L (22-30); Chloride 102 mmol/L (98-107); Glucose 196 mg/dL (74-99); Non-African American GFR(CKD) 41 (>60 ml/min/1.73 sqM); Sodium 133 mmol/L (137-145); Total Bilirubin 0.7 mg/dL (0.2-1.3); Total Protein 6.2 g/dL (6.3-8.2)
[2024-05-06] MEDS ORDERED: NALOXONE 0.4 MG/ML 1 ML VIAL IV PRN (14:19)
[2024-05-06] MEDS ORDERED: ONDANSETRON 4 MG/2 ML VIAL IVP PRN (14:19)
--- NOTE | 2024-05-06 15:09 | US ---
EXAMINATION TYPE: US venous doppler duplex LE BI DATE OF EXAM: 05/06/2024 2:21 PM COMPARISON: NONE CLINICAL INDICATION: Female, 68 years old with history of Dyspnea with exertion; Pain and SOB, Pain, Swelling TECHNIQUE: The lower extremity deep venous system is examined utilizing real time linear array sonog nellie with graded compression, color doppler sonography, and spectral doppler. SIDE PERFORMED: Bilateral FINDINGS: VESSELS IMAGED: Common Femoral Vein Deep Femoral Vein Greater Saphenous Vein * Femoral Vein Popliteal Vein Small Saphenous Vein * Proximal Calf Veins (* superficial vessels) Right Leg: Negative for DVT, Color Doppler imaging shows patency of the vessels. Spectral waveforms are within normal limits. Left Leg: Negative for DVT, Color Doppler imaging shows patency of the vessels. Spectral waveforms a re within normal limits. IMPRESSION: No ultrasound evidence for deep venous thrombosis. [facility], , 05/06/2024 3:07 PM
[2024-05-06] MEDS: carvediloL 12.5 MG TAB PO SCH (17:53)
[2024-05-06] MEDS: amLODIPine 10 MG TAB PO SCH (20:36)
[2024-05-06] MEDS: LATANOPROST 0.005% OPHTH DROPS 2.5 ML BTL BOTH EYES SCH (20:37)
[2024-05-06] MEDS: DOXAZOSIN 2 MG TAB PO SCH (20:37)
--- NOTE | 2024-05-06 22:25 | P.HPIM ---
History of Present Illness H&P Date: 05/06/24 Chief Complaint: Short of breath with exertion This is a pleasant 68-year-old patient follows Dr. Guzmán. Medical conditions include diabetes, hypertension, hyperlipidemia, osteoarthritis, patient underwent renal transplant about 11 months ago at [facility]. 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 Gets blood work done every month. Does have sleep apnea does not use CPAP. For about a week patient been noticing that she gets dizzy short of breath with nearly passing out with activity. Even with activity around the house. Also had some cough. A bit of a [place] cough but not really much sputum. Some decrease in appetite. No headache. No fever no chills. No change in bowel or urine pattern. Patient had coronary angioplasty about 2 years ago. Follows with a occupational analyst out of town. Review of systems: GEN.: Tired EYES: None HEENT: None NECK: None RESPIRATORY: As above e CARDIOVASCULAR: As above GASTROINTESTINAL: None GENITOURINARY: None MUSCULOSKELETAL: None LYMPHATICS: None HEMATOLOGICAL: None PSYCHIATRY: None NEUROLOGICAL: None Social history: . Retired used to work at [employer] for many years. Non-smoker. Alcohol rarely. Physical examination: VITAL SIGNS: 98.9, 69, 16, 158 x 79, 98% room air GENERAL: 32.9, reclining bed awake a bit tired appearing. EYES: Pupils equal. Conjunctiva torie l. HEENT: External appearance of nose and ears normal, oral cavity grossly normal. NECK: JVD not raised; masses not palpable. HEART: First and second heart sounds are normal; no edema. LUNGS: Respiratory rate normal; clear to auscultation. ABDOMEN: Soft, nontender, liver spleen not palpable, no masses palpable. PSYCH: Alert and oriented x3; mood and affect torie l. MUSCULOSKELETAL:No Clubbing/cyanosis;muscles-grossly intact NEUROLOGICAL: Cranial nerves grossly intact; no facial asymmetry, power and se nsation grossly intact. LYMPHATICS: No lymph nodes palpable in the axilla and neck INVESTIGATIONS, reviewed in the clinical context: May 06, 2024: White count 9.8 hemoglobin 13.1 platelets 195 sodium 133 potassium 4 BUN 22 creatinine 1.33 Troponin I less than 0.014, less than 0.012, less than 0.012. proBNP 598 Influenza type A, type B, RSV, COVID-19: Not detected EKG tracing personally reviewed by me-normal sinus rhythm. Some flipped T waves in inferior lateral leads Doppler ultrasound bilateral lower extremity: Negative for DVT Chest x-ray film personally reviewed by me-cardiomegaly. Some cephalization Assessment plan: -Patient presents with 1 week of dizziness near syncope short of breath with any exertion on the house. Has a history of coronary angioplasty 2 years ago. Pa theodore is a EKG changes in the inferolateral leads. Patient may have underlying ischemia of the inferior wall in the RCA territory. 2D echocardiogram. Telemetry. Consult cardiology. Keep the patient n.p.o. except for medications in view of possible cardiac catheterization -Because of shortness of breath with exertion also need to rule out PE. Given patient's elevated creatinine we will order a VQ scan. Doppler ultrasound of the lower extremity was negative -Renal transplant from diabetic kidney disease transplant done in about 11 months ago at [facility]. Followed by . Resume transplant medications Consult nephrology -Chronic kidney disease stage III and a transplant kidney Follow creatinine closely. Hold Lasix in the morning in view of possible cardiac cath Consult nephrology -Obstructive sleep apnea patient does not use CPAP machine -GERD Pepcid -Essential hypertension renal transplant kidney Cardura 2 mg nightly. Amlodipine 10 mg nightly -Diabetes mellitus type 2, chronically on insulin Lantus. Accu-Cheks with sliding scale insulin -Full code Given the complexity and severity of patient's condition expect the patient to be in the hospital at least for 2 overnights - Past Medical History Past Medical History: Diabetes Mellitus, Eye Disorder, Hyperlipidemia, Hypertension, Osteoarthritis (OA), Renal Disease, Sleep Apnea/CPAP/BIPAP Additional Past Medical History / Comment(s): glaucoma, not currently using CPAP, hiatal hernia, gout, stage 4 renal failure. 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 History of Any Multi-Drug Resistant Organisms: None Reported Past Surgical History: Back Surgery, Section, Cholecystectomy, Heart Catheterization, Tubal Ligation, Uterine Ablation Additional Past Surgical History / Comment(s): cervical fusion. 3. Endometrial ablation in 1994. Colonoscopy 2019(3rd, next after 5yr) kidney transplant 05/25/23 Past Anesthesia/Blood Transfusion Reactions: Previous Problems w/ Anesthesia, Motion Sickness Additional Past Anesthesia/Blood Transfusion Reaction / Comment(s): pt states hard to wake up from anesthesia. Past Psychological History: No Psychological Hx Reported Smoking Status: Former smoker Past Alcohol Use History: Rare Past Drug Use History: None Reported - Past Family History Brother(s) Family Medical History: Cancer Additional Family Medical History / Comment(s): 2 brothers with cancer, one brother had breast cancer, another had bone cancer. Sister(s) Additional Family Medical History / Comment(s): brain anerusym Medications and Allergies Home Medications Medication Instructions Recorded Confirmed Type Carvedilol 25 mg PO BID 10/08/14 05/06/24 History Isosorbide Mononitrate [Isosorbide 30 mg PO DAILY 01/12/21 05/06/24 History Mononitrate ER] Aspirin EC [Ecotrin Low Dose] 81 mg PO DAILY 05/06/24 05/06/24 History Doxazosin [Cardura] 2 mg PO HS 05/06/24 05/06/24 History Ergocalciferol (Vitamin D2) 1,250 mcg PO Q30D 05/06/24 05/06/24 History [Drisdol (50,000 Iu)] Evolocumab [Repatha Sureclick] 140 mg SQ Q14D 05/06/24 05/06/24 History Famotidine [Pepcid] 20 mg PO DAILY 05/06/24 05/06/24 History Furosemide [Lasix] 40 mg PO DAILY 05/06/24 05/06/24 History Insulin Glargine,Hum.rec.anlog 27 units SQ DAILY 05/06/24 05/06/24 History [Lantus Solostar Pen] Latanoprost [Latanoprost 0.005%] 1 drop BOTH EYES HS 05/06/24 05/06/[address] [Myfortic] 720 mg PO BID 05/06/24 05/06/24 History Tacrolimus [Envarsus Xr] 1.5 mg PO DAILY 05/06/24 05/06/24 History Tacrolimus [Envarsus Xr] 2 mg PO DAILY 05/06/24 05/06/24 History Tacrolimus [Envarsus Xr] 4 mg PO DAILY 11/11/24 11/11/24 History amLODIPine [Norvasc] 10 mg PO HS 05/06/24 05/06/24 History predniSONE 10 mg PO DAILY 05/06/24 05/06/24 History Allergies Allergy/AdvReac Type Severity Reaction Status Date / Time codeine Allergy Nausea Verified 05/06/24 12:49 Sulfa (Sulfonamide Allergy Rash/Hives Verified 05/06/24 12:49 Antibiotics) adhesive AdvReac blisters Verified 05/06/24 12:49 Bqlkzsu-YRK-YuC Reductase AdvReac Joint Pain Verified 05/06/24 12:49 Inhibitor [Zliooxd-Toy-Wly Reductase Inhibitor] Physical Exam Vitals: Vital Signs Temp Pulse Resp BP Pulse Ox 05/06/24 19:36 69 16 158/79 90 L 05/06/24 17:54 71 16 172/74 94 L 05/06/24 15:09 77 16 132/74 96 05/06/24 11:40 79 18 168/78 96 05/06/24 11:10 98.9 F 79 16 191/82 98 Intake and Output 05/06/24 05/06/24 05/06/24 06:59 14:59 22:59 Other: Weight 95.254 kg Results CBC & Chem 7: 05/06/24 12:41 05/06/24 12:41 Labs: Abnormal Lab Results - Last 24 Hours (Table) 05/06/24 05/06/24 05/06/24 Range/Units 12:41 12:41 14:15 Neutrophils # 8.9 H (1.3-7.7) k/uL Lymphocytes # 0.1 L (1.0-4.8) k/uL D-Dimer 3.19 H (<0.60) mg/L FEU Sodium 133 L (137-145) mmol/L BUN 22 H (7-17) mg/dL Creatinine 1.33 H (0.52-1.04) mg/dL Glucose 196 H (74-99) mg/dL Total Protein 6.2 L (6.3-8.2) g/dL
[2024-05-06] MEDS: MYCOPHENOLATE SODIUM DR 180 MG TABLET.DR PO SCH (22:30)
[2024-05-07] MEDS: TACROLIMUS 0.5 MG CAP PO SCH (09:07)
[2024-05-07] MEDS: ISOSORBIDE MONONITRATE ER 30 MG TAB.ER.24H PO SCH (09:30)
[2024-05-07] MEDS: ASPIRIN 81 MG PO SCH (09:30)
[2024-05-07] MEDS: FAMOTIDINE 20 MG TAB PO SCH (09:30)
[2024-05-07] MEDS: predniSONE 10 MG TAB PO SCH (09:30)
--- NOTE | 2024-05-07 09:58 | NM ---
EXAMINATION TYPE: NM pul vent and perfuse DATE OF EXAM: 05/07/2024 CLINICAL INDICATION: Female, 68 years old with history of Dizziness with exertion; COMPARISON: Chest radiograph 05/06/2024 TECHNIQUE: Utilizing inhalation of 38.7 mCi Tc 99m DTPA aerosol and intravenous injection of 5.3 mCi of Tc 99m MAA, ventilation and perfusion images are acquired post injection in multiple projections. FINDINGS: Normal radiotracer distribution is noted in the lungs. There is no evidence of mismatched defects. IMPRESSION: No evidence for pulmonary embolus. [facility], , 05/07/2024 9:55 AM
[2024-05-07] MEDS ORDERED: TACROLIMUS 1 MG PO SCH (10:11)
--- NOTE | 2024-05-07 10:32 | P.CRDCN ---
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 Eliseo Johnston, with past medical history of diabetes, hypertension, hyperlipidemia, kidney transplant 05/25/2023. We have been asked to evaluate the patient for chest pain. Patient states that yesterday morning she started having dizziness while she was laying down and also felt like she was short winded. She has had some shortness of breath with minimal activity over the past week. She denies having any chest pain. She does give history that she had a cardiac catheterization 2007 but did not require stent placement. She apparently had a repeat cardiac catheterization done about 2 to 3 years ago at [facility]. Patient also states she had a stress test done at [facility] where she has her transplant team in August of this year and this was unremarkable. Blood pressure 146/74, heart rate 67, pulse ox 97% on 2 L nasal cannula. EKG: T wave inversion in lateral leads, same as in 2014 Chest x-ray: No acute process Ultrasound of the bilateral lower extremities negative for DVT VQ scan no evidence of pulmonary embolus Laboratory studies: CBC unremarkable. D-dimer 3.19. Troponin negative x 3. proBNP 598. BUN 22 creatinine 1.33, potassium 4.0, sodium 133. Home cardiac medications: Amlodipine 10 mg at bedtime, aspirin 81 mg daily, Coreg 25 mg twice daily, Cardura 2 mg at bedtime, Repatha 140 mg subcu every 14 days, Lasix 40 mg daily, Imdur 30 mg daily. Review Of Systems: At the time of my exam: CONSTITUTIONAL: Denies fever or chills. HEENT: Denies blurred vision, vision changes, or eye pain. Denies hemoptysis CARDIOVASCULAR: Denies chest pain. Denies orthopnea. Denies PND. Denies palpitations RESPIRATORY: Denies shortness of breath. GASTROINTESTINAL: Denies abdominal pain. Denies nausea or vomiting. HEMATOLOGIC: Denies bleeding disorders. GENITOURINARY: Denies any blood in urine. SKIN: Denies puritis. Denies rash. Physical examination: Gen: This is a 68-year-old female in no acute distress VS: reviewed HEENT: Head is atraumatic, normocephalic. Pupils equal, round. Sclerae is anicteric. NECK: Supple. No JVD. LUNGS: Clear to auscultation. No wheezes or rhonchi. No intercostal retractions. HEART: Regular rate and rhythm. No murmur. ABDOMEN: Soft No tenderness. EXTREMITIES: No pedal edema. No calf tenderness. NEUROLOGICAL: Patient is awake, alert and oriented x3. Assessment: Dizziness Dyspnea on exertion History of kidney transplant Diabetes Hypertension Hyperlipidemia Plan: Resume patient's home cardiac medications Obtain cardiac catheterization report from [facility] completed 2 to 3 years ago Obtain records from [facility] of stress test performed August 2023 Obtain 2-D echocardiogram and Doppler study to assess cardiac structure and function Further recommendations to follow based upon clinical course Thank you kindly for this consultation. Nurse practitioner note has been reviewed, I agree with documented findings and plan of care. Patient was seen and examined. Past Medical History Past Medical History: Diabetes Mellitus, Eye Disorder, Hyperlipidemia, Hypertension, Osteoarthritis (OA), Renal Disease, Sleep Apnea/CPAP/BIPAP Additional Past Medical History / Comment(s): glaucoma, not currently using CPAP, hiatal hernia, gout, stage 4 renal failure. 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 History of Any Multi-Drug Resistant Organisms: None Reported Past Surgical History: Back Surgery, Section, Cholecystectomy, Heart Catheterization, Tubal Ligation, Uterine Ablation Additional Past Surgical History / Comment(s): cervical fusion. 3. Endometrial ablation in 1994. Colonoscopy 2019(3rd, next after 5yr) kidney transplant 05/25/23 Past Anesthesia/Blood Transfusion Reactions: Previous Problems w/ Anesthesia, Motion Sickness Additional Past Anesthesia/Blood Transfusion Reaction / Comment(s): pt states hard to wake up from anesthesia. Past Psychological History: No Psychological Hx Reported Smoking Status: Former smoker Past Alcohol Use History: Rare Past Drug Use History: None Reported - Past Family History Brother(s) Family Medical History: Cancer Additional Family Medical History / Comment(s): 2 brothers with cancer, one bro ther had breast cancer, another had bone cancer. Sister(s) Additional Family Medical History / Comment(s): brain anerusym Medications and Allergies Home Medications Medication Instructions Recorded Confirmed Type Carvedilol 25 mg PO BID 10/08/14 05/06/24 History Isosorbide Mononitrate [Isosorbide 30 mg PO DAILY 01/12/21 05/06/24 History Mononitrate ER] Aspirin EC [Ecotrin Low Dose] 81 mg PO DAILY 05/06/24 05/06/24 History Doxazosin [Cardura] 2 mg PO HS 05/06/24 05/06/24 History Ergocalciferol (Vitamin D2) 1,250 mcg PO Q30D 05/06/24 05/06/24 History [Drisdol (50,000 Iu)] Evolocumab [Repatha Sureclick] 140 mg SQ Q14D 05/06/24 05/06/24 History Famotidine [Pepcid] 20 mg PO DAILY 05/06/24 05/06/24 History Furosemide [Lasix] 40 mg PO DAILY 05/06/24 05/06/24 History Insulin Glargine,Hum.rec.anlog 27 units SQ DAILY 05/06/24 05/06/24 History [Lantus Solostar Pen] Latanoprost [Latanoprost 0.005%] 1 drop BOTH EYES HS 05/06/24 05/06/[address] [Myfortic] 720 mg PO BID 05/06/24 05/06/24 History Tacrolimus [Envarsus Xr] 1.5 mg PO DAILY 05/06/24 05/06/24 History Tacrolimus [Envarsus Xr] 2 mg PO DAILY 05/06/24 05/06/24 History Tacrolimus [Envarsus Xr] 4 mg PO DAILY 05/06/24 05/06/24 History amLODIPine [Norvasc] 10 mg PO HS 05/06/24 05/06/24 History predniSONE 10 mg PO DAILY 05/06/24 05/06/24 History Allergies Allergy/AdvReac Type Severity Reaction Status Date / Time codeine Allergy Nausea Verified 05/06/24 12:49 Sulfa (Sulfonamide Allergy Rash/Hives Verified 05/06/24 12:49 Antibiotics) adhesive AdvReac blisters Verified 05/06/24 12:49 Gcbxcdz-JSO-JpM Reductase AdvReac Joint Pain Verified 05/06/24 12:49 Inhibitor [Olhcqod-Ddn-Kyc Reductase Inhibitor] Physical Exam Vitals: Vital Signs Temp Pulse Resp BP Pulse Ox 05/07/24 05:35 67 18 146/74 97 05/06/24 23:17 73 18 139/72 95 05/06/24 19:36 69 16 158/79 90 L 05/06/24 17:54 71 16 172/74 94 L 05/06/24 15:09 77 16 132/74 96 05/06/24 11:40 79 18 168/78 96 05/06/24 11:10 98.9 F 79 16 191/82 98 Results 05/06/24 12:41 05/06/24 12:41 Cardiac Enzymes 05/06/24 05/06/24 05/06/24 Range/Units 12:41 12:41 15:50 AST 19 (14-36) U/L Troponin I 0.014 <0.012 (0.000-0.034) ng/mL 05/06/24 Range/Units 19:25 AST (14-36) U/L Troponin I <0.012 (0.000-0.034) ng/mL Coagulation 05/06/24 Range/Units 12:41 PT 10.7 (10.0-12.5) sec APTT 26.1 (22.0-30.0) sec CBC 05/06/24 Range/Units 12:41 WBC 9.8 (3.8-10.6) k/uL RBC 4.57 (3.80-5.40) m/uL Hgb 13.1 (11.4-16.0) gm/dL Hct 40.6 (34.0-46.0) % Plt Count 195 (150-450) k/uL Comprehensive Metabolic Panel 05/06/24 Range/Units 12:41 Sodium 133 L (137-145) mmol/L Potassium 4.0 (3.5-5.1) mmol/L Chloride 102 (98-107) mmol/L Carbon Dioxide 26 (22-30) mmol/L BUN 22 H (7-17) mg/dL Creatinine 1.33 H (0.52-1.04) mg/dL Glucose 196 H (74-99) mg/dL Calcium 9.7 (8.4-10.2) mg/dL AST 19 (14-36) U/L ALT 12 (4-34) U/L Alkaline Phosphatase 83 (38-126) U/L Total Protein 6.2 L (6.3-8.2) g/dL Albumin 3.6 (3.5-5.0) g/dL Current Medications Generic Name Dose Route Start Last Admin Trade Name Freq PRN Reason Stop Dose Admin Amlodipine Besylate 10 mg 05/06/24 21:00 05/06/24 20:36 Amlodipine 10 Mg Tab PO 10 mg HS ALLIE Administration Aspirin 81 mg 05/07/24 09:00 Aspirin 81 Mg PO DAILY [facility] Carvedilol 25 mg 05/06/24 17:30 05/06/24 17:53 Carvedilol 12.5 Mg Tab PO 25 mg BID-W/MEALS ALLIE Administration Doxazosin Mesylate 2 mg 05/06/24 21:00 05/06/24 20:37 Doxazosin 2 Mg Tab PO 2 mg HS [facility] Administration Ergocalciferol 1,250 mcg 05/20/24 09:00 Ergocalciferol 1,250 Mcg (50,000 Iu) Capsule PO Q30D [facility] Famotidine 20 mg 05/07/24 09:00 Famotidine 20 Mg Tab PO DAILY [facility] Furosemide 40 mg 05/07/24 09:00 Furosemide 40 Mg Tab PO DAILY [facility] Insulin Detemir 27 unit 05/07/24 09:00 Insulin Detemir (Levemir) 100 Unit/Ml Syr SQ DAILY [facility] Isosorbide Mononitrate 30 mg 05/07/24 09:00 Isosorbide Mononitrate Er 30 Mg Tab.Er.24h PO DAILY [facility] Latanoprost 1 drops 05/06/24 21:00 05/06/24 20:37 Latanoprost 0.005% Ophth Drops 2.5 Ml Btl BOTH EYES 1 drops HS [facility] Administration Mycophenolate Sodium 720 mg 05/06/24 22:30 05/06/24 22:[address] 180 Mg Tablet.Dr PO Not Given BID [facility] Naloxone HCl 0.2 mg 05/06/24 14:19 Naloxone 0.4 Mg/Ml 1 Ml Vial IV Q2M PRN Opioid Reversal Non-Formulary Medication 2 mg 05/07/24 09:00 Tacrolimus [Envarsus Xr] PO DAILY [facility] Non-Formulary Medication 4 mg 05/07/24 09:00 Tacrolimus [Envarsus Xr] PO DAILY [facility] Ondansetron HCl 4 mg 05/06/24 14:19 Ondansetron 4 Mg/2 Ml Vial IVP Q8HR PRN Nausea And Vomiting Prednisone 10 mg 05/07/24 09:00 Prednisone 10 Mg Tab PO DAILY [facility] Tacrolimus 1.5 mg 05/07/24 09:00 Tacrolimus 0.5 Mg Cap PO DAILY [facility] 05/06/24 12:41 05/06/24 12:41
[2024-05-07] MEDS: TACROLIMUS 4 MG PO SCH (10:48)
[2024-05-07] MEDS: TACROLIMUS 1 MG PO SCH ×2 (10:48→12:47)
[2024-05-07] MEDS: INSULIN DETEMIR (LEVEMIR) 100 UNIT/ML SYR SQ SCH (11:34)
--- NOTE | 2024-05-07 12:00 | P.NPCON ---
History of Present Illness - History of Present Illness patient is a 68-year-old female with history of end-stage renal disease status post donor transplant in April 2023 at [place]. Baseline creatinine 1.2-1.3 mg/dL. Patient is admitted to the hospital with complaints of shortness of breath and dizziness. Blood pressure is not noted to be low. Patient does have underlying coronary artery disease with previous cardiac catheterization and coronary stent placement. She has been evaluated by cardiology. Serum creatinine at 1.3 mg/dL. Chest x-ray is unremarkable Pulmonary perfusion scan shows no evidence of mismatched defects. Past Medical History Past Medical History: Diabetes Mellitus, Eye Disorder, Hyperlipidemia, Hypertension, Osteoarthritis (OA), Renal Disease, Sleep Apnea/CPAP/BIPAP Additional Past Medical History / Comment(s): glaucoma, not currently using CPAP, hiatal hernia, gout, stage 4 renal failure. 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 History of Any Multi-Drug Resistant Organisms: None Reported Past Surgical History: Back Surgery, Section, Cholecystectomy, Heart Catheterization, Tubal Ligation, Uterine Ablation Additional Past Surgical History / Comment(s): cervical fusion. 3. Endometrial ablation in 1994. Colonoscopy 2019(3rd, next after 5yr) kidney transplant 05/25/23 Past Anesthesia/Blood Transfusion Reactions: Previous Problems w/ Anesthesia, Motion Sickness Additional Past Anesthesia/Blood Transfusion Reaction / Comment(s): pt states hard to wake up from anesthesia. Past Psychological History: No Psychological Hx Reported Smoking Status: Former smoker Past Alcohol Use History: Rare Past Drug Use History: None Reported - Past Family History Brother(s) Family Medical History: Cancer Additional Family Medical History / Comment(s): 2 brothers with cancer, one brother had breast cancer, another had bone cancer. Sister(s) Additional Family Medical History / Comment(s): brain anerusym Medications and Allergies Home Medications Medication Instructions Recorded Confirmed Type Carvedilol 25 mg PO BID 10/08/14 05/06/24 History Isosorbide Mononitrate [Isosorbide 30 mg PO DAILY 01/12/21 05/06/24 History Mononitrate ER] Aspirin EC [Ecotrin Low Dose] 81 mg PO DAILY 05/06/24 05/06/24 History Doxazosin [Cardura] 2 mg PO HS 05/06/24 05/06/24 History Ergocalciferol (Vitamin D2) 1,250 mcg PO Q30D 05/06/24 05/06/24 History [Drisdol (50,000 Iu)] Evolocumab [Repatha Sureclick] 140 mg SQ Q14D 05/06/24 05/06/24 History Famotidine [Pepcid] 20 mg PO DAILY 05/06/24 05/06/24 History Furosemide [Lasix] 40 mg PO DAILY 05/06/24 05/06/24 History Insulin Glargine,Hum.rec.anlog 27 units SQ DAILY 05/06/24 05/06/24 History [Lantus Solostar Pen] Latanoprost [Latanoprost 0.005%] 1 drop BOTH EYES HS 05/06/24 05/06/[address] [Myfortic] 720 mg PO BID 05/06/24 05/06/24 History Tacrolimus [Envarsus Xr] 1.5 mg PO DAILY 05/06/24 05/06/24 History Tacrolimus [Envarsus Xr] 2 mg PO DAILY 05/06/24 05/06/24 History Tacrolimus [Envarsus Xr] 4 mg PO DAILY 05/06/24 05/06/24 History amLODIPine [Norvasc] 10 mg PO HS 05/06/24 05/06/24 History predniSONE 10 mg PO DAILY 05/06/24 05/06/24 History Allergies Allergy/AdvReac Type Severity Reaction Status Date / Time codeine Allergy Nausea Verified 05/06/24 12:49 Sulfa (Sulfonamide Allergy Rash/Hives Verified 05/06/24 12:49 Antibiotics) adhesive AdvReac blisters Verified 05/06/24 12:49 Xxnttur-ODM-UuP Reductase AdvReac Joint Pain Verified 05/06/24 12:49 Inhibitor [Jbtgjcw-Qst-Sbe Reductase Inhibitor] Physical Exam Vitals: Vital Signs Temp Pulse Pulse Resp BP BP Pulse Ox 05/07/24 09:26 98.3 F 84 16 175/77 92 L 05/07/24 05:35 67 18 146/74 97 05/06/24 23:17 73 18 139/72 95 05/06/24 19:36 69 16 158/79 90 L 05/06/24 17:54 71 16 172/74 94 L 05/06/24 15:09 77 16 132/74 96 Intake and Output 05/06/24 05/07/24 05/07/24 22:59 06:59 14:59 Other: Weight 95.254 kg patient is awake, comfortable, no acute distress. Alert oriented 3. Examination of the heart S1 and S2 Examination of the lungs bilateral breath sounds are heard Abdomen is soft nontender Examination of lower extremities shows no evidence of edema [employer] exam grossly intact Results - Lab Results Most recent lab results Calcium 9.7 mg/dL (8.4-10.2) 05/06/24 12:41 05/06/24 12:41 05/06/24 12:41 Assessment and Plan Assessment: 1. End-stage renal disease status post donor transplant in April 2023 in [place], maintained on tacrolimus and Myforticalong with prednisone. Baseline creatinine 1.2-1.3 mg/dL 2. Hypertension with CK D stage III 3. Shortness of breath currently being worked up. Nuclear scan negative for evidence of PE and chest x-ray does not show any findings of CHF. Cardiology workup in progress. 4. Type 2 diabetes Plan: hold Lasix Check trough tacrolimus level in a.m. Continue current immunosuppressive medications Repeat labs in a.m. Thank you for the consultation. We will continue to follow the patient with you during her hospitalization.
[2024-05-07] MEDS: FUROSEMIDE 40 MG TAB PO SCH (12:47)
[2024-05-07 13:01] LABS: Glucose,Whole Blood 177 mg/dL (70-110)
[2024-05-07] MEDS: INSULIN ASPART (NovoLOG) 100 UNIT/ML VIAL SQ SCH (14:06)
--- NOTE | 2024-05-07 15:33 | P.PN ---
Progress Note - Text Progress Note Date: 05/07/24 Chief Complaint: Short of breath with exertion This is a pleasant 68-year-old patient follows Dr. Guzmán. Medical conditions include diabetes, hypertension, hyperlipidemia, osteoarthritis, patient underwent renal transplant about 11 months ago at [facility]. Follows with transplant maintenance superintendent . Gets blood work done every month. Does have sleep apnea does not use CPAP. For about a week patient been noticing that she gets dizzy short of breath with nearly passing out with activity. Even with activity around the house. Also had some cough. A bit of a Hacche cough but not really much sputum. Some decrease in appetite. No headache. No fever no chills. No change in bowel or urine pattern. Patient had coronary angioplasty about 2 years ago. 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 May 07: Resting in bed. at the bedside. No chest pain. Discussed with Dr. Ribera from cardiology. Possibly nuclear stress test tomorrow. Concern for silent ischemia. VQ scan negative for PE Active Medications Aminophylline (Aminophylline 500 Mg/20 Ml Vial) 100 mg IV ONCE PRN PRN Reason: Patient Response Stop: 05/08/24 14:00 Amlodipine Besylate (Amlodipine 10 Mg Tab) 10 mg PO HS [facility] Last Admin: 05/06/24 20:36 Dose: 10 mg Aspirin (Aspirin 81 Mg) 81 mg PO DAILY [facility] Last Admin: 05/07/24 09:30 Dose: 81 mg Caffeine Citrate (Caffeine Citrate 60 Mg/3 Ml Vial) 60 mg IV ONCE PRN PRN Reason: Patient Response Stop: 05/08/24 14:00 Carvedilol (Carvedilol 12.5 Mg Tab) 25 mg PO BID-W/MEALS [facility] Last Admin: 05/07/24 09:30 Dose: 25 mg Doxazosin Mesylate (Doxazosin 2 Mg Tab) 2 mg PO HS [facility] Last Admin: 05/06/24 20:37 Dose: 2 mg Ergocalciferol (Ergocalciferol 1,250 Mcg (50,000 Iu) Capsule) 1,250 mcg PO Q30D [facility] Famotidine (Famotidine 20 Mg Tab) 20 mg PO DAILY [facility] Last Admin: 05/07/24 09:30 Dose: 20 mg Insulin Aspart (Insulin Aspart (Novolog) 100 Unit/Ml Vial) 0 unit SQ ACHS [facility]; Protocol Last Admin: 05/07/24 14:06 Dose: 2 unit Insulin Detemir (Insulin Detemir (Levemir) 100 Unit/Ml Syr) 27 unit SQ DAILY [facility] Last Admin: 05/07/24 11:34 Dose: 20 unit Isosorbide Mononitrate (Isosorbide Mononitrate Er 30 Mg Tab.Er.24h) 30 mg PO DAILY [facility] Last Admin: 05/07/24 09:30 Dose: 30 mg Latanoprost (Latanoprost 0.005% Ophth Drops 2.5 Ml Btl) 1 drops BOTH EYES HS [facility] Last Admin: 05/06/24 20:37 Dose: 1 drops Mycophenolate Sodium (Mycophenolate Sodium Dr 180 Mg Tablet.Dr) 720 mg PO BID [facility] Last Admin: 05/07/24 10:34 Dose: 720 mg Naloxone HCl (Naloxone 0.4 Mg/Ml 1 Ml Vial) 0.2 mg IV Q2M PRN PRN Reason: Opioid Reversal Tacrolimus [Envarsus (Xr] 4 Mg Tablet) 4 mg PO DAILY [facility] Last Admin: 05/07/24 10:48 Dose: Not Given Tacrolimus [Envarsus (Xr] 1 Mg Tablet)) 3.5 mg PO DAILY [facility] Last Admin: 05/07/24 10:48 Dose: Not Given Ondansetron HCl (Ondansetron 4 Mg/2 Ml Vial) 4 mg IVP Q8HR PRN PRN Reason: Nausea And Vomiting Prednisone (Prednisone 10 Mg Tab) 10 mg PO DAILY [facility] Last Admin: 05/07/24 09:30 Dose: 10 mg Regadenoson (Regadenoson 0.4 Mg/5 Ml Syringe) 0.4 mg IV ONCE PRN PRN Reason: Per Protocol Stop: 05/08/24 14:00 Social history: . Retired used to work at [employer] for many years. Non-smoker. Alcohol rarely. Physical examination: VITAL SIGNS: 98.4, 80, 16, 142 x 65, 94% room air GENERAL: Resting in bed EYES: Pupils equal. Conjunctiva torie l. HEENT: External appearance of nose and ears normal, oral cavity grossly normal. NECK: JVD not raised; masses not palpable. HEART: First and second heart sounds are normal; no edema. LUNGS: Respiratory rate normal; clear to auscultation. ABDOMEN: Soft, nontender, liver spleen not palpable, no masses palpable. PSYCH: Alert and oriented x3; mood and affect torie l. MUSCULOSKELETAL:No Clubbing/cyanosis;muscles-grossly intact INVESTIGATIONS, reviewed in the clinical context: VQ scan: Negative for PE May 06, 2024: White count 9.8 hemoglobin 13.1 platelets 195 sodium 133 potassium 4 BUN 22 creatinine 1.33 Troponin I less than 0.014, less than 0.012, less than 0.012. proBNP 598 Influenza type A, type B, RSV, COVID-19: Not detected EKG tracing personally reviewed by me-normal sinus rhythm. Some flipped T waves in inferior lateral leads Doppler ultrasound bilateral lower extremity: Negative for DVT Chest x-ray film personally reviewed by me-cardiomegaly. Some cephalization Assessment plan: -Patient presents with 1 week of dizziness near syncope short of breath with any exertion on the house. Has a history of coronary angioplasty 2 years ago. Patient is a EKG changes in the inferolateral leads. Patient may have underlying ischemia of the inferior wall in the RCA territory. 2D echocardiogram. Telemetry. Seen by cardiology. Nuclear stress test tomorrow -Because of shortness of breath with exertion also need to rule out PE. Given patient's elevated creatinine we will order a VQ scan. 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 Followed by . Resume transplant medications Nephrology following -Chronic kidney disease stage III and a transplant kidney Follow creatinine closely. Hold Lasix in the morning in view of possible cardiac cath Consult nephrology -Obstructive sleep apnea patient does not use CPAP machine -GERD Pepcid -Essential hypertension renal transplant kidney Cardura 2 mg nightly. Amlodipine 10 mg nightly -Diabetes mellitus type 2, chronically on insulin Lantus. Accu-Cheks with sliding scale insulin -Full code Discussed with Dr. Ribera. For nuclear stress test tomorrow. Discussed with patient . Activity as tolerated. - Past Medical History Past Medical History: Diabetes Mellitus, Eye Disorder, Hyperlipidemia, Hypertension, Osteoarthritis (OA), Renal Disease, Sleep Apnea/CPAP/BIPAP Additional Past Medical History / Comment(s): glaucoma, not currently using CPAP, hiatal hernia, gout, stage 4 renal failure. 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 History of Any Multi-Drug Resistant Organisms: None Reported Past Surgical History: Back Surgery, Section, Cholecystectomy, Heart Catheterization, Tubal Ligation, Uterine Ablation Additional Past Surgical History / Comment(s): cervical fusion. 3. Endometrial ablation in 1994. Colonoscopy 2019(3rd, next after 5yr) kidney transplant 05/25/23 Past Anesthesia/Blood Transfusion Reactions: Previous Problems w/ Anesthesia, Motion Sickness Additional Past Anesthesia/Blood Transfusion Reaction / Comment(s): pt states hard to wake up from anesthesia. Past Psychological History: No Psychological Hx Reported Smoking Status: Former smoker Past Alcohol Use History: Rare Past Drug Use History: None Reported
[2024-05-07 17:02] LABS: Glucose,Whole Blood 264 mg/dL (70-110)
[2024-05-07 20:12] LABS: Glucose,Whole Blood 234 mg/dL (70-110)
[2024-05-08 06:05] LABS: Glucose,Whole Blood 118 mg/dL (70-110)
[2024-05-08] MEDS ORDERED: AMINOPHYLLINE 500 MG/20 ML VIAL IV PRN (07:00)
[2024-05-08] MEDS ORDERED: CAFFEINE CITRATE 60 MG/3 ML VIAL IV PRN (07:00)
[2024-05-08] MEDS ORDERED: REGADENOSON 0.4 MG/5 ML SYRINGE IV PRN (07:00)
--- NOTE | 2024-05-08 07:03 | CA ---
Transthoracic Echo Report Name: Debra Lozano Age: 68 Gender: F : 1955 Exam Date: 05/07/2024 14:40 Exam Location: [facility] Ht (in): 67 Wt (lb): 210 Ordering Physician: Mani Servin MD Attending/Referring Phys: Nuclear Physicist Lissett Mclaughlin RDCS Procedure CPT: Indications: poss chf Cardiac Hx: Technical Quality: Good Contrast 1: Total Dose (mL): Contrast 2: Total Dose (mL): MEASUREMENTS (Male / Female) Normal Values 2D ECHO LV Diastolic Diameter PLAX 4.3 cm 4.2 - 5.9 / 3.9 - 5.3 cm LV Systolic Diameter PLAX 2.6 cm IVS Diastolic Thickness 1.4 cm 0.6 - 1.0 / 0.6 - 0.9 cm LVPW Diastolic Thickness 1.4 cm 0.6 - 1.0 / 0.6 - 0.9 cm LV Relative Wall Thickness 0.7 RV Internal Dim ED PLAX 2.7 cm LVOT Diameter 2.3 cm LA Systolic Diameter LX 3.7 cm 3.0 - 4.0 / 2.7 - 3.8 cm LV Diastolic Volume MOD 4C 104.4 cm??? LV Systolic Volume MOD 4C 37.6 cm??? LV Ejection Fraction MOD 4C 64.0 % LV Cardiac Index MOD 4C 2479.4 cm???/min???m??? LV Diastolic Length 4C 8.5 cm LV Systolic Length 4C 7.3 cm LV Diastolic Volume MOD 2C 94.4 cm??? LV Systolic Volume MOD 2C 42.5 cm??? LV Ejection Fraction MOD 2C 54.9 % LV Cardiac Index MOD 2C 1924.2 cm???/min???m??? LV Diastolic Length 2C 8.4 cm LV Systolic Length 2C 7.1 cm LA Volume 58.3 cm??? 18 - 58 / 22 - 52 cm??? LA Volume Index 27.1 cm???/m??? 16 - 28 cm???/m??? M-MODE Aortic Root Diameter MM 3.2 cm AV Cusp Separation MM 2.2 cm DOPPLER AV Peak Velocity 164.6 cm/s AV Peak Gradient 10.8 mmHg MV Area PHT 2.5 cm??? Mitral E Point Velocity 80.4 cm/s Mitral A Point Velocity 121.4 cm/s Mitral E to A Ratio 0.7 MV Deceleration Time 302.9 ms TR Peak Velocity 251.5 cm/s TR Peak Gradient 25.3 mmHg Right Ventricular Systolic Press 30.1 mmHg FINDINGS Left Ventricle Left ventricular ejection fraction is estimated at 60-65 %. Left ventricular cavity size normal. Moderately increased septal wall thickness. Moderately increased posterior wall thickness. Right Ventricle Normal right ventricular size and function. Right ventricular systolic pressure within normal limits. Right Atrium Normal right atrial size. No right atrial thrombus or mass seen. Left Atrium Mildly increased left atrial volume. Mildly increased left atrial area. No left atrial thrombus or mass present. Mitral Valve Structurally normal mitral valve. No mitral stenosis, regurgitation or prolapse. Aortic Valve Trileaflet aortic valve. Aortic valve sclerosis. No aortic stenosis. Tricuspid Valve Structurally normal tricuspid valve. Mild tricuspid regurgitation. Pulmonic Valve Structurally normal pulmonic valve. Mild pulmonic regurgitation. Pericardium Small pericardial effusion. Aorta Normal size aortic root and proximal ascending aorta. CONCLUSIONS Normal biventricular systolic function Aortic sclerosis with no stenosis or insufficiency Normal pulmonary artery systolic pressure Small pericardial effusion posteriorly Previewed by: Dr. Oswaldo Ribera MD (Electronically Signed) Final Date: 08 May 2024 07:02
--- NOTE | 2024-05-08 07:55 | P.PN ---
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 Eliseo Johnston, with past medical history of diabetes, hypertension, hyperlipidemia, kidney transplant 05/25/2023. We have been asked to evaluate the patient for chest pain. Patient states that yesterday morning she started having dizziness while she was laying down and also felt like she was short winded. She has had some shortness of breath with minimal activity over the past week. She denies having any chest pain. She does give history that she had a cardiac catheterization 2007 but did not require stent placement. She apparently had a repeat cardiac catheterization done about 2 to 3 years ago at [facility]. Patient also states she had a stress test done at [facility] where she has her transplant team in August of this year and this was unremarkable. Blood pressure 146/74, heart rate 67, pulse ox 97% on 2 L nasal cannula. EKG: T wave inversion in lateral leads, same as in 2014 Chest x-ray: No acute process Ultrasound of the bilateral lower extremities negative for DVT VQ scan no evidence of pulmonary embolus Laboratory studies: CBC unremarkable. D-dimer 3.19. Troponin negative x 3. proBNP 598. BUN 22 creatinine 1.33, potassium 4.0, sodium 133. Home cardiac medications: Amlodipine 10 mg at bedtime, aspirin 81 mg daily, Coreg 25 mg twice daily, Cardura 2 mg at bedtime, Repatha 140 mg subcu every 14 days, Lasix 40 mg daily, Imdur 30 mg daily. 05/08/2024 Patient is seen and examined. Echocardiogram reveals EF of 60 to 65%. Aortic sclerosis with no stenosis or insufficiency. Normal pulmonary artery systolic pressure. Small pericardial effusion posteriorly. Results of the echocardiogram reviewed with the patient. She states she had a little bit of chest pain yesterday but none today. Patient was scheduled for Lexiscan stress test which was delayed until Monday as patient underwent VQ scan yesterday. Patient is agreeable that she will be able to walk on a treadmill and stress test changed to stress echo. Blood pressure 133/73, heart rate 70, pulse ox 93% on room air. Physical examination: Gen: This is a 68-year-old female in no acute distress VS: reviewed HEENT: Head is atraumatic, normocephalic. Pupils equal, round. Sclerae is anicteric. NECK: Supple. No JVD. LUNGS: Clear to auscultation. No wheezes or rhonchi. No intercostal retractions. HEART: Regular rate and rhythm. No murmur. ABDOMEN: Soft No tenderness. EXTREMITIES: No pedal edema. No calf tenderness. NEUROLOGICAL: Patient is awake, alert and oriented x3. Assessment: Dizziness Dyspnea on exertion History of kidney transplant Diabetes Hypertension Hyperlipidemia Plan: Continue patient's home cardiac medications Obtain cardiac catheterization report from [facility] completed 2 to 3 years ago Obtain records from [facility] of stress test performed August 2023 Schedule patient for stress echocardiogram today If stress test is unremarkable, patient is cleared for discharge from cardiology and may follow-up with her primary veneer marker. Nurse practitioner note has been reviewed, I agree with documented findings and plan of care. Patient was seen and examined. Objective - Vital Signs Vital signs: Vital Signs Temp 98.2 F 05/08/24 01:59 Pulse 70 05/08/24 01:59 Resp 17 05/08/24 01:59 BP 133/73 05/08/24 01:59 Pulse Ox 93 L 05/08/24 01:59 FiO2 Intake & Output 05/07/24 05/08/24 05/08/24 18:59 06:59 18:59 Intake Total 118 Balance 118 Intake: Oral 118 Other: # Voids 1 2 - Labs CBC & Chem 7: 05/06/24 12:41 05/06/24 12:41 Labs: Abnormal Lab Results - Last 24 Hours (Table) 05/07/24 05/07/24 05/07/24 Range/Units 13:00 17:01 20:10 POC Glucose (mg/dL) 177 H 264 H 234 H (70-110) mg/dL 05/08/24 Range/Units 06:03 POC Glucose (mg/dL) 118 H (70-110) mg/dL
[2024-05-08 08:35] LABS: African American GFR (CKD) 43 (>60 ml/min/1.73 sqM); Anion Gap 3 mmol/L; Blood Urea Nitrogen 25 mg/dL (7-17); Calcium 10.2 mg/dL (8.4-10.2); Carbon Dioxide 28 mmol/L (22-30); Chloride 106 mmol/L (98-107); Glucose 116 mg/dL (74-99); Non-African American GFR(CKD) 37 (>60 ml/min/1.73 sqM); Potassium 4.3 mmol/L (3.5-5.1); Sodium 137 mmol/L (137-145)
[2024-05-08] MEDS: TACROLIMUS 0.75 MG PO SCH (11:03)
[2024-05-08] MEDS: TACROLIMUS 1 MG PO SCH (11:05)
--- NOTE | 2024-05-08 11:26 | CA ---
Stress Echo Report Debra Lozano Age: 68 Gender: F : 1955 Exam Date: 05/08/2024 10:45 Exam Location: [facility] Ht (in): 67 Wt (lb): 210 Ordering Physician: Shania Landers Referring Physician: [id number] Wash Barrel Leader: Christopher Gallegos Technologist Procedure CPT: Indication: Chest Pain ICD-9 Codes: Rhythm: Patient History: Cardiac Medications: SEE CHART Medications in past 24 hours: Contrast: N/A Stress Results Protocol: Isreal Total dose(mL): NA Exercise Duration (min:sec): 3:[address] Depression (mm): Angina Score: Cueto Score: METS: 4.6 Resting HR: 93 Resting BP: 123 / 63 Peak HR: 126 Peak BP: 170 / 91 Max Predicted HR: 153 82 % Max Predicted HR Target HR: 130 Double Product: [id number] Stress Summary: BP Response: Reason for Termination: Maximal effort/unable to continue Cardiac Symptoms: ADELITA/VERTIGO ECG Analysis Resting ECG: Stress ECG: Arrhythmia: Echo Analysis Resting Echo: Peak Echo Analysis: MEASUREMENTS (Male/Female) Normal Values CONCLUSIONS Poor exercise tolerance. The patient exercised only for 3 minutes and 47 seconds on the treadmill The patient achieved 82% of maximum predicted heart rate Nondiagnostic electrocardiogram in response to exercise due to baseline EKGs abnormalities Normal echocardiogram in response to exercise up to the level of heart rate achieved which is 82% of maximum predicted heart rate No evidence of wall motion abnormalities on the echo concerning for ischemia Dr. Oswaldo Ribera MD (Electronically Signed) Final Date: 08 May 2024 11:25
[2024-05-08 12:30] LABS: Glucose,Whole Blood 167 mg/dL (70-110)
--- NOTE | 2024-05-08 12:53 | P.PN ---
Subjective patient is seen for follow-up for post transplant care. No significant complaints today. serum creatinine at 1.45 today. Diuretics are on hold. Good urine output. Objective - Vital Signs Vital signs: Vital Signs Temp 97.7 F 05/08/24 07:15 Pulse 77 05/08/24 11:00 Resp 18 05/08/24 07:15 BP 134/82 05/08/24 11:00 Pulse Ox 97 05/08/24 08:01 FiO2 Intake & Output 05/07/24 05/08/24 05/08/24 18:59 06:59 18:59 Intake Total 118 Balance 118 Intake: Oral 118 Other: # Voids 1 2 - Exam patient is awake, comfortable, no acute distress. Alert oriented 3. Examination of the heart S1 and S2 Examination of the lungs bilateral breath sounds are heard Abdomen is soft nontender Examination of lower extremities shows no evidence of edema SISTER SUPERIOR exam grossly intact - Labs CBC & Chem 7: 05/06/24 12:41 05/08/24 08:03 Labs: Abnormal Lab Results - Last 24 Hours (Table) 05/07/24 05/07/24 05/07/24 Range/Units 13:00 17:01 20:10 BUN (7-17) mg/dL Creatinine (0.52-1.04) mg/dL Glucose (74-99) mg/dL POC Glucose (mg/dL) 177 H 264 H 234 H (70-110) mg/dL 05/08/24 05/08/24 05/08/24 Range/Units 06:03 08:03 12:29 BUN 25 H (7-17) mg/dL Creatinine 1.45 H (0.52-1.04) mg/dL Glucose 116 H (74-99) mg/dL POC Glucose (mg/dL) 118 H 167 H (70-110) mg/dL Assessment and Plan Assessment: 1. End-stage renal disease status post donor transplant in April 2023 in [place], maintained on tacrolimus and Myforticalong with prednisone. Baseline creatinine 1.2-1.3 mg/dL 2. Hypertension with CK D stage III 3. Shortness of breath currently being worked up. Nuclear scan negative for evidence of PE and chest x-ray does not show any findings of CHF. Cardiology workup in progress. Stress echo was negative. 4. Type 2 diabetes Plan: continue to hold diuretics Check trough tacrolimus level Continue current immunosuppressive medications Repeat labs in a.m. Follow-up as outpatient if discharged
[2024-05-08 16:33] LABS: Appearance,Urine Cloudy (Clear); Bacteria,Urine Rare /hpf; Bilirubin,Urine Negative (Negative); Blood,Urine Negative (Negative); Calcium Oxalate Crystals,Urine Few /hpf; Color,Urine Yellow; Glucose,Urine (UA) Negative (Negative); Ketones,Urine Negative (Negative); Leukocyte Esterase,Urine Negative (Negative); Mucus,Urine Few /hpf; Nitrite,Urine Negative (Negative); PH, Urine 5.5 (5.0-8.0); Protein,Urine 1+ (Negative); Specific Gravity,Urine 1.033 (1.001-1.035); Squamous Epithelial Cell,Urine 17 /hpf (0-4); Urobilinogen,Urine <2.0 mg/dL (<2.0); WBC,Urine 5 /hpf (0-5)
--- NOTE | 2024-05-08 16:49 | P.PN ---
Progress Note - Text Progress Note Date: 05/08/24 Chief Complaint: Short of breath with exertion This is a pleasant 68-year-old patient follows Dr. Guzmán. Medical conditions include diabetes, hypertension, hyperlipidemia, osteoarthritis, patient underwent renal transplant about 11 months ago at [facility]. Follows with transplant rand tacker . Gets blood work done every month. Does have sleep apnea does not use CPAP. For about a week patient been noticing that she gets dizzy short of breath with nearly passing out with activity. Even with activity around the house. Also had some cough. A bit of a [place] cough but not really much sputum. Some decrease in appetite. No headache. No fever no chills. No change in bowel or urine pattern. Patient had coronary angioplasty about 2 years ago. Follows with a ag service manager out of town. May 07: Resting in bed. at the bedside. No chest pain. Discussed with Dr. Ribera from cardiology. Possibly nuclear stress test tomorrow. Concern for silent ischemia. VQ scan negative for PE May 08: Saw the patient this morning. No chest pain. Underwent a stress echocardiogramThis morning. Poor exercise tolerance. Achieved 82% of maximum predicted heart rate. Nondiagnostic EKG. No wall motion abnormality.-I just spoke to the nurse canceled. Per cardiology patient will be watched overnight. Active Medications Amlodipine Besylate (Amlodipine 10 Mg Tab) 10 mg PO HS [facility] Last Admin: 05/07/24 20:59 Dose: 10 mg Aspirin (Aspirin 81 Mg) 81 mg PO DAILY [facility] Last Admin: 05/08/24 08:55 Dose: 81 mg Carvedilol (Carvedilol 12.5 Mg Tab) 25 mg PO BID-W/MEALS [facility] Last Admin: 05/08/24 11:03 Dose: 25 mg Doxazosin Mesylate (Doxazosin 2 Mg Tab) 2 mg PO HS [facility] Last Admin: 05/07/24 20:59 Dose: 2 mg Ergocalciferol (Ergocalciferol 1,250 Mcg (50,000 Iu) Capsule) 1,250 mcg PO Q30D [facility] Famotidine (Famotidine 20 Mg Tab) 20 mg PO DAILY [facility] Last Admin: 05/08/24 08:55 Dose: 20 mg Insulin Aspart (Insulin Aspart (Novolog) 100 Unit/Ml Vial) 0 unit SQ ACHS [facility]; Protocol Last Admin: 05/08/24 13:08 Dose: 2 unit Insulin Detemir (Insulin Detemir (Levemir) 100 Unit/Ml Syr) 27 unit SQ DAILY [facility] Last Admin: 05/08/24 13:08 Dose: 27 unit Isosorbide Mononitrate (Isosorbide Mononitrate Er 30 Mg Tab.Er.24h) 30 mg PO DAILY [facility] Last Admin: 05/08/24 08:56 Dose: 30 mg Latanoprost (Latanoprost 0.005% Ophth Drops 2.5 Ml Btl) 1 drops BOTH EYES HS [facility] Last Admin: 05/07/24 21:00 Dose: 1 drops Mycophenolate Sodium (Mycophenolate Sodium Dr 180 Mg Tablet.Dr) 720 mg PO BID [facility] Last Admin: 05/08/24 08:57 Dose: 720 mg Naloxone HCl (Naloxone 0.4 Mg/Ml 1 Ml Vial) 0.2 mg IV Q2M PRN PRN Reason: Opioid Reversal Tacrolimus [Envarsus (Xr] 4 Mg Tablet) 4 mg PO DAILY [facility] Last Admin: 05/08/24 11:05 Dose: 4 mg Tacrolimus [Envarsus (Xr] 1 Mg Tablet)) 2 mg PO DAILY [facility] Last Admin: 05/08/24 11:05 Dose: 2 mg Tacrolimus [Envarsus (Xr] 0.75 Mg Tablet)) 0.75 mg PO DAILY [facility] Last Admin: 05/08/24 11:03 Dose: 0.75 mg Ondansetron HCl (Ondansetron 4 Mg/2 Ml Vial) 4 mg IVP Q8HR PRN PRN Reason: Nausea And Vomiting Prednisone (Prednisone 10 Mg Tab) 10 mg PO DAILY [facility] Last Admin: 05/08/24 08:57 Dose: 10 mg Social history: . Retired used to work at [employer] for many years. Non-smoker. Alcohol rarely. Physical examination: VITAL SIGNS: 97.8, 78, 17, 147 x 79, 95% room air GENERAL: Sitting at the edge of the bed EYES: Pupils equal. Conjunctiva torie l. HEENT: External appearance of nose and ears normal, oral cavity grossly normal. NECK: JVD not raised; masses not palpable. HEART: First and second heart sounds are normal; no edema. LUNGS: Respiratory rate normal; clear to auscultation. ABDOMEN: Soft, nontender, liver spleen not palpable, no masses palpable. PSYCH: Alert and oriented x3; mood and affect torie l. MUSCULOSKELETAL:No Clubbing/cyanosis;muscles-grossly intact INVESTIGATIONS, reviewed in the clinical context: stress echocardiogramThis morning. Poor exercise tolerance. Achieved 82% of maximum predicted heart rate. Nondiagnostic EKG. No wall motion abnormality. 2D echocardiogram: EF 60 to 65%. Moderately increased septal wall and posterior wall thickness. May 08: Sodium 137 potassium 4.3 BUN 25 creatinine 1.45 VQ scan: Negative for PE May 06, 2024: White count 9.8 hemoglobin 13.1 platelets 195 sodium 133 potassium 4 BUN 22 creatinine 1.33 Troponin I less than 0.014, less than 0.012, less than 0.012. proBNP 598 Influenza type A, type B, RSV, COVID-19: Not detected EKG tracing personally reviewed by me-normal sinus rhythm. Some flipped T waves in inferior lateral leads Doppler ultrasound bilateral lower extremity: Negative for DVT Chest x-ray film personally reviewed by me-cardiomegaly. Some cephalization Assessment plan: -Patient presents with 1 week of dizziness near syncope short of breath with any exertion on the house. Has a history of coronary angioplasty 2 years ago. Patient is a EKG changes in the inferolateral leads. Patient may have underlying ischemia of the inferior wall in the RCA territory. 2D echocardiogram results as above. Telemetry. Being followed by cardiology. stress echocardiogramThis morning. Poor exercise tolerance. Achieved 82% of maximum predicted heart rate. Nondiagnostic EKG. No wall motion abnormality. Cardiology will watch the patient overnight. -Because of shortness of breath with exertion also need to rule out PE. Given patient's elevated creatinine we will order a VQ scan. Doppler ultrasound of the lower extremity was negative VQ scan negative for PE -Renal transplant from diabetic kidney disease transplant done in about 11 months ago at [facility]. Followed by . Resume transplant medications Nephrology following -Chronic kidney disease stage III and a transplant kidney Follow creatinine Nephrology following -Obstructive sleep apnea patient does not use CPAP machine -GERD Pepcid -Essential hypertension renal transplant kidney Cardura 2 mg nightly. Amlodipine 10 mg nightly -Diabetes mellitus type 2, chronically on insulin Lantus. Accu-Cheks with sliding scale insulin -Full code Continue current treatment plan. Cardiology will watch the patient overnight. - Past Medical History Past Medical History: Diabetes Mellitus, Eye Disorder, Hyperlipidemia, Hypertension, Osteoarthritis (OA), Renal Disease, Sleep Apnea/CPAP/BIPAP Additional Past Medical History / Comment(s): glaucoma, not currently using CPAP, hiatal hernia, gout, stage 4 renal failure. 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 History of Any Multi-Drug Resistant Organisms: None Reported Past Surgical History: Back Surgery, Section, Cholecystectomy, Heart Catheterization, Tubal Ligation, Uterine Ablation Additional Past Surgical History / Comment(s): cervical fusion. 3. Endometrial ablation in 1994. Colonoscopy 2019(3rd, next after 5yr) kidney transplant 05/25/23 Past Anesthesia/Blood Transfusion Reactions: Previous Problems w/ Anesthesia, Motion Sickness Additional Past Anesthesia/Blood Transfusion Reaction / Comment(s): pt states hard to wake up from anesthesia. Past Psychological History: No Psychological Hx Reported Smoking Status: Former smoker Past Alcohol Use History: Rare Past Drug Use History: None Reported
[2024-05-08 17:18] LABS: Glucose,Whole Blood 208 mg/dL (70-110)
[2024-05-08 20:12] LABS: Glucose,Whole Blood 236 mg/dL (70-110)
[2024-05-09 01:44] VITALS: TEMP 98.5
[2024-05-09 05:44] LABS: Glucose,Whole Blood 135 mg/dL (70-110)
[2024-05-09 06:49] VITALS: BP 137/72; PULSE 75; RESP 18
--- NOTE | 2024-05-09 09:19 | P.PN ---
Subjective Progress Note Date: 05/09/24 Consult reason: chest pain History of present illness: This is a 68-year-old female that follows with a department manager in [place], Dr. Eliseo Johnston, with past medical history of diabetes, hypertension, hyperlipidemia, kidney transplant 05/25/2023. We have been asked to evaluate the patient for chest pain. Patient states that yesterday morning she started having dizziness while she was laying down and also felt like she was short winded. She has had some shortness of breath with minimal activity over the past week. She denies having any chest pain. She does give history that she had a cardiac catheterization 2007 but did not require stent placement. She apparently had a repeat cardiac catheterization done about 2 to 3 years ago at [facility]. Patient also states she had a stress test done at [facility] where she has her transplant team in August of this year and this was unremarkable. Blood pressure 146/74, heart rate 67, pulse ox 97% on 2 L nasal cannula. EKG: T wave inversion in lateral leads, same as in 2014 Chest x-ray: No acute process Ultrasound of the bilateral lower extremities negative for DVT VQ scan no evidence of pulmonary embolus Laboratory studies: CBC unremarkable. D-dimer 3.19. Troponin negative x 3. proBNP 598. BUN 22 creatinine 1.33, potassium 4.0, sodium 133. Home cardiac medications: Amlodipine 10 mg at bedtime, aspirin 81 mg daily, Coreg 25 mg twice daily, Cardura 2 mg at bedtime, Repatha 140 mg subcu every 14 days, Lasix 40 mg daily, Imdur 30 mg daily. 05/08/2024 Patient is seen and examined. Echocardiogram reveals EF of 60 to 65%. Aortic sclerosis with no stenosis or insufficiency. Normal pulmonary artery systolic pressure. Small pericardial effusion posteriorly. Results of the echocardiogram reviewed with the patient. She states she had a little bit of chest pain yesterday but none today. Patient was scheduled for Lexiscan stress test which was delayed until Monday as patient underwent VQ scan yesterday. Patient is agreeable that she will be able to walk on a treadmill and stress test changed to stress echo. Blood pressure 133/73, heart rate 70, pulse ox 93% on room air. 05/09/2024 Patient seen and examined. Yesterday, patient underwent stress echocardiogram which revealed poor exercise tolerance. Patient exercised only for 3 minutes and 47 seconds. She achieved 82% of the maximum predicted heart rate. Nondiagnostic electrocardiogram and response to exercise due to baseline EKG abnormalities. Normal echocardiogram and response to exercise up to the level of heart rate achieved which is 82% of maximum predicted. No evidence of wall motion abnormalities concerning for ischemia. Results of the stress echocardiogram were reviewed with the patient yesterday. Blood pressure 137/72, heart rate 75, pulse ox 94% on room air. Previous cardiac catheterization reviewed with the patient. She denies having any chest pain today. She states she slept well. Breathing is better today. Cardiac catheterization report from [facility] dated 04/26/2022 revealed mild to moderate nonobstructive coronary disease. Mildly elevated LVEDP. EF 55 to 60%. No aortic valve stenosis. LAD with moderate ostial left anterior d escending arterial stenosis. Medical management with risk factor modification was recommended. Physical examination: Gen: This is a 68-year-old female in no acute distress VS: reviewed HEENT: Head is atraumatic, normocephalic. Pupils equal, round. Sclerae is anicteric. NECK: Supple. No JVD. LUNGS: Clear to auscultation. No wheezes or rhonchi. No intercostal retractions. HEART: Regular rate and rhythm. No murmur. ABDOMEN: Soft No tenderness. EXTREMITIES: No pedal edema. No calf tenderness. NEUROLOGICAL: Patient is awake, alert and oriented x3. Assessment: Dizziness Dyspnea on exertion History of kidney transplant Diabetes Hypertension Hyperlipidemia Plan: Continue patient's home cardiac medications Patient is cleared for discharge from cardiology and may follow-up with her primary department manager in 1 to 2 weeks. Nurse practitioner note has been reviewed, I agree with documented findings and plan of care. Patient was seen and examined. Objective - Vital Signs Vital signs: Vital Signs Temp 98.5 F 05/09/24 06:48 Pulse 75 05/09/24 06:48 Resp 18 05/09/24 06:48 BP 137/72 05/09/24 06:48 Pulse Ox 94 L 05/09/24 06:48 FiO2 Intake & Output 05/08/24 05/09/24 05/09/24 18:59 06:59 18:59 Intake Total 480 Balance 480 Intake: Oral 480 Other: # Voids 1 2 - Labs CBC & Chem 7: 05/06/24 12:41 05/08/24 08:03 Labs: Abnormal Lab Results - Last 24 Hours (Table) 05/08/24 05/08/24 05/08/24 Range/Units 08:03 12:29 15:47 BUN 25 H (7-17) mg/dL Creatinine 1.45 H (0.52-1.04) mg/dL Glucose 116 H (74-99) mg/dL POC Glucose (mg/dL) 167 H (70-110) mg/dL Urine Appearance Cloudy H (Clear) Urine Protein 1+ H (Negative) Ur Squamous Epith Cells 17 H (0-4) /hpf Calcium Oxalate Crystal Few H (None) /hpf Urine Bacteria Rare H (None) /hpf Urine Mucus Few H (None) /hpf 05/08/24 05/08/24 05/09/24 Range/Units 17:16 20:10 05:43 BUN (7-17) mg/dL Creatinine (0.52-1.04) mg/dL Glucose (74-99) mg/dL POC Glucose (mg/dL) 208 H 236 H 135 H (70-110) mg/dL Urine Appearance (Clear) Urine Protein (Negative) Ur Squamous Epith Cells (0-4) /hpf Calcium Oxalate Crystal (None) /hpf Urine Bacteria (None) /hpf Urine Mucus (None) /hpf
[2024-05-09 11:23] LABS: African American GFR (CKD) 47 (>60 ml/min/1.73 sqM); Anion Gap 5 mmol/L; Blood Urea Nitrogen 26 mg/dL (7-17); Calcium 10.4 mg/dL (8.4-10.2); Carbon Dioxide 29 mmol/L (22-30); Chloride 106 mmol/L (98-107); Glucose 147 mg/dL (74-99); Non-African American GFR(CKD) 41 (>60 ml/min/1.73 sqM); Potassium 4.5 mmol/L (3.5-5.1); Sodium 140 mmol/L (137-145)
--- NOTE | 2024-05-09 12:45 | P.PN ---
Subjective patient is seen for follow-up for post transplant care. No significant complaints today. serum creatinine at 1.35 today. Tacrolimus level came back at 7.9 Diuretics are on hold. Good urine output. Objective - Vital Signs Vital signs: Vital Signs Temp 98.5 F 05/09/24 06:48 Pulse 75 05/09/24 06:48 Resp 18 05/09/24 06:48 BP 137/72 05/09/24 06:48 Pulse Ox 94 L 05/09/24 06:48 FiO2 Intake & Output 05/08/24 05/09/24 05/09/24 18:59 06:59 18:59 Intake Total 480 Balance 480 Intake: Oral 480 Other: # Voids 1 2 - Exam patient is awake, comfortable, no acute distress. Alert oriented 3. patient appears euvolemic Examination of lower extremities shows no evidence of edema WRIST CL[employer]ER exam grossly intact - Labs CBC & Chem 7: 05/06/24 12:41 05/09/24 10:39 Labs: Abnormal Lab Results - Last 24 Hours (Table) 05/08/24 05/08/24 05/08/24 Range/Units 15:47 17:16 20:10 BUN (7-17) mg/dL Creatinine (0.52-1.04) mg/dL Glucose (74-99) mg/dL POC Glucose (mg/dL) 208 H 236 H (70-110) mg/dL Calcium (8.4-10.2) mg/dL Urine Appearance Cloudy H (Clear) Urine Protein 1+ H (Negative) Ur Squamous Epith Cells 17 H (0-4) /hpf Calcium Oxalate Crystal Few H (None) /hpf Urine Bacteria Rare H (None) /hpf Urine Mucus Few H (None) /hpf 05/09/24 05/09/24 Range/Units 05:43 10:39 BUN 26 H (7-17) mg/dL Creatinine 1.35 H (0.52-1.04) mg/dL Glucose 147 H (74-99) mg/dL POC Glucose (mg/dL) 135 H (70-110) mg/dL Calcium 10.4 H (8.4-10.2) mg/dL Urine Appearance (Clear) Urine Protein (Negative) Ur Squamous Epith Cells (0-4) /hpf Calcium Oxalate Crystal (None) /hpf Urine Bacteria (None) /hpf Urine Mucus (None) /hpf Assessment and Plan Assessment: 1. End-stage renal disease status post donor transplant in April 2023 in [place], maintained on tacrolimus and Myforticalong with prednisone. Baseline creatinine 1.2-1.3 mg/dL 2. Hypertension with CK D stage III 3. Shortness of breath currently being worked up. Nuclear scan negative for evidence of PE and chest x-ray does not show any findings of CHF. Cardiology workup in progress. Stress echo was negative. 4. Type 2 diabetes Plan: continue to hold diuretics continue current immunosuppressive medications and repeat tacrolimus level as outpatient Follow-up as outpatient if discharged
--- NOTE | 2024-05-09 17:59 | P.DS ---
Providers Date of admission: 05/06/24 14:23 Expected date of discharge: 05/09/24 Attending physician: Mani Servin Consults: 05/06/24 14:19 Consult Physician Stat Consulting Provider: Oswaldo Ribera Consult Reason/Comments: Dizziness and dyspnea with exertion Do you want consulting provider notified?: Yes 05/06/24 20:53 Consult Physician Routine Consulting Provider: Oswaldo Ribera Consult Reason/Comments: poss angina Do you want consulting provider notified?: Yes 05/06/24 20:54 Consult Physician Routine Consulting Provider: Ruma Lyn Consult Reason/Comments: renal Tx pt Do you want consulting provider notified?: Yes Primary care physician: [facility] Course: Chief Complaint: Short of breath with exertion This is a pleasant 68-year-old patient follows Dr. Guzmán. Medical conditions include diabetes, hypertension, hyperlipidemia, osteoarthritis, patient underwent renal transplant about 11 months ago at [facility]. Follows with transplant personnel scheduler . Gets blood work done every month. Does have sleep apnea does not use CPAP. For about a week patient been noticing that she gets dizzy short of breath with nearly passing out with activity. Even with activity around the house. Also had some cough. A bit of a [place] cough but not really much sputum. Some decrease in appetite. No headache. No fever no chills. No change in bowel or urine pattern. Patient had coronary angioplasty about 2 years ago. Follows with a practice advisor out of town. May 07: Resting in bed. at the bedside. No chest pain. Discussed with Dr. Ribera from cardiology. Possibly nuclear stress test tomorrow. Concern for silent ischemia. VQ scan negative for PE May 08: Saw the patient this morning. No chest pain. Underwent a stress echocardiogramThis morning. Poor exercise tolerance. Achieved 82% of maximum predicted heart rate. Nondiagnostic EKG. No wall motion abnormality.-I just spoke to the nurse canceled. Per cardiology patient will be watched overnight. May 09: Patient was cleared by cardiology. Patient had a cardiac catheterization in 2021 at [facility]. Minimal disease. Patient to follow-up with her practice advisor Dr. Johnston. Patient did ambulate up and down the floor twice. No cardiac symptoms. Discussed. Patient follow-up with her personnel scheduler. Discussion and discharge planning more than 35 minutes Cardiac catheterization report from [facility] dated 04/26/2022 revealed mild to moderate nonobstructive coronary disease. Mildly elevated LVEDP. EF 55 to 60%. No aortic valve stenosis. LAD with moderate ostial left anterior descending arterial stenosis. Medical management with risk factor modification was recommended. Social history: . Retired used to work at [employer] for many years. Non-smoker. Alcohol rarely. Physical examination: VITAL SIGNS: 98.5, 75, 18, 137 x 72, 94% room air GENERAL: Comfortable EYES: Pupils equal. Conjunctiva torie l. HEENT: External appearance of nose and ears normal, oral cavity grossly normal. NECK: JVD not raised; masses not palpable. HEART: First and second heart sounds are normal; no edema. LUNGS: Respiratory rate normal; clear to auscultation. ABDOMEN: Soft, nontender, liver spleen not palpable, no masses palpable. PSYCH: Alert and oriented x3; mood and affect torie l. MUSCULOSKELETAL:No Clubbing/cyanosis;muscles-grossly intact INVESTIGATIONS, reviewed in the clinical context: May 09: Potassium 4.5 BUN 26 creatinine 1.35 stress echocardiogramThis morning. Poor exercise tolerance. Achieved 82% of maximum predicted heart rate. Nondiagnostic EKG. No wall motion abnormality. 2D echocardiogram: EF 60 to 65%. Moderately increased septal wall and posterior wall thickness. May 08: Sodium 137 potassium 4.3 BUN 25 creatinine 1.45 VQ scan: Negative for PE May 06, 2024: White count 9.8 hemoglobin 13.1 platelets 195 sodium 133 potassium 4 BUN 22 creatinine 1.33 Troponin I less than 0.014, less than 0.012, less than 0.012. proBNP 598 Influenza type A, type B, RSV, COVID-19: Not detected EKG tracing personally reviewed by me-normal sinus rhythm. Some flipped T waves in inferior lateral leads Doppler ultrasound bilateral lower extremity: Negative for DVT Chest x-ray film personally reviewed by me-cardiomegaly. Some cephalization Assessment plan: -Patient presents with 1 week of dizziness near syncope short of breath with any exertion on the house. Has a history of coronary angioplasty 2 years ago. Patient is a EKG changes in the inferolateral leads. Patient may have underlying ischemia of the inferior wall in the RCA territory. 2D echocardiogram results as above. Telemetry. Being followed by cardiology. stress echocardiogramT-poor exercise tolerance. Achieved 82% of maximum predicted heart rate. Nondiagnostic EKG. No wall motion abnormality. Patient cleared by cardiology for discharge t. -Because of shortness of breath with exertion also need to rule out PE. Given patient's elevated creatinine we will order a VQ scan. Doppler ultrasound of the lower extremity was negative VQ scan negative for PE -Renal transplant from diabetic kidney disease transplant done in about 11 months ago at [facility]. Followed by . Resume transplant medications Nephrology following -Chronic kidney disease stage III and a transplant kidney Follow creatinine Nephrology following -Obstructive sleep apnea patient does not use CPAP machine -GERD Pepcid -Essential hypertension renal transplant kidney Cardura 2 mg nightly. Amlodipine 10 mg nightly -Diabetes mellitus type 2, chronically on insulin Lantus. Accu-Cheks with sliding scale insulin -Full code Disposition: Home - Past Medical History Past Medical History: Diabetes Mellitus, Eye Disorder, Hyperlipidemia, Hypertension, Osteoarthritis (OA), Renal Disease, Sleep Apnea/CPAP/BIPAP Additional Past Medical History / Comment(s): glaucoma, not currently using CPAP, hiatal hernia, gout, stage 4 renal failure. Past [employer] history: She thinks she had some type of STD in the past many years ago but does not know the name of it. History of Any Multi-Drug Resistant Organisms: None Reported Past Surgical History: Back Surgery, Section, Cholecystectomy, Heart Catheterization, Tubal Ligation, Uterine Ablation Additional Past Surgical History / Comment(s): cervical fusion. 3. Endometrial ablation in 1994. Colonoscopy 2019(3rd, next after 5yr) kidney transplant 05/25/23 Past Anesthesia/Blood Transfusion Reactions: Previous Problems w/ Anesthesia, Motion Sickness Additional Past Anesthesia/Blood Transfusion Reaction / Comment(s): pt states hard to wake up from anesthesia. Past Psychological History: No Psychological Hx Reported Smoking Status: Former smoker Past Alcohol Use History: Rare Past Drug Use History: None Reported Plan - Discharge Summary Discharge Rx Participant: No New Discharge Prescriptions: New Tacrolimus [Envarsus Xr] 0.75 mg PO DAILY Tacrolimus [Envarsus Xr] 2 mg PO DAILY Continue Carvedilol 25 mg PO BID Latanoprost [Latanoprost 0.005%] 1 drop BOTH EYES HS Ergocalciferol (Vitamin D2) [Drisdol (50,000 Iu)] 1,250 mcg PO Q30D Tacrolimus [Envarsus Xr] 2 mg PO DAILY Tacrolimus [Envarsus Xr] 1.5 mg PO DAILY Tacrolimus [Envarsus Xr] 4 mg PO DAILY amLODIPine [Norvasc] 10 mg PO HS Insulin Glargine,Hum.rec.anlog [Lantus Solostar Pen] 27 units SQ DAILY Evolocumab [Repatha Sureclick] 140 mg SQ Q14D Isosorbide Mononitrate [Isosorbide Mononitrate ER] 30 mg PO DAILY Famotidine [Pepcid] 20 mg PO DAILY Doxazosin [Cardura] 2 mg PO HS predniSONE 10 mg PO DAILY Mycophenolate Sodium Dr [Myfortic] 720 mg PO BID Aspirin EC [Ecotrin Low Dose] 81 mg PO DAILY No Action Furosemide [Lasix] 40 mg PO DAILY Discharge Medication List Carvedilol 25 mg PO BID 10/08/14 [History] Isosorbide Mononitrate [Isosorbide Mononitrate ER] 30 mg PO DAILY 01/12/21 [History] Aspirin EC [Ecotrin Low Dose] 81 mg PO DAILY 05/06/24 [History] Doxazosin [Cardura] 2 mg PO HS 05/06/24 [History] Ergocalciferol (Vitamin D2) [Drisdol (50,000 Iu)] 1,250 mcg PO Q30D 05/06/24 [History] Evolocumab [Repatha Sureclick] 140 mg SQ Q14D 05/06/24 [History] Famotidine [Pepcid] 20 mg PO DAILY 05/06/24 [History] Furosemide [Lasix] 40 mg PO DAILY 05/06/24 [History] Insulin Glargine,Hum.rec.anlog [Lantus Solostar Pen] 27 units SQ DAILY 05/06/24 [History] Latanoprost [Latanoprost 0.005%] 1 drop BOTH EYES HS 05/06/24 [History] Mycophenolate Sodium Dr [Myfortic] 720 mg PO BID 05/06/24 [History] Tacrolimus [Envarsus Xr] 1.5 mg PO DAILY 05/06/24 [History] Tacrolimus [Envarsus Xr] 2 mg PO DAILY 05/06/24 [History] Tacrolimus [Envarsus Xr] 4 mg PO DAILY 05/06/24 [History] amLODIPine [Norvasc] 10 mg PO HS 05/06/24 [History] predniSONE 10 mg PO DAILY 05/06/24 [History] Tacrolimus [Envarsus Xr] 0.75 mg PO DAILY 05/09/24 [Rx] Tacrolimus [Envarsus Xr] 2 mg PO DAILY 05/09/24 [Rx] Follow up Appointment(s)/Referral(s): bencardio-dr [Other] - 1 Week Jama Guzmán DO [Primary Care Provider] - 1-2 days Patient Instructions/Handouts: Dizziness (ED) Discharge Disposition: HOME SELF-CARE
[2024-05-20] MEDS ORDERED: ERGOCALCIFEROL 1,250 MCG (50,000 IU) CAPSULE PO SCH (09:00)
== END 2024-05-09 11:48 | disposition home or self-care (01) ==
LOC: EC 10:42 → 6NMEDSUR 14:23 → INTOOBSV 22:24 → OBSVTOIN 22:24 → 6NMEDSUR 05-07 07:08
PROVIDERS: ADMIT Hospitalist; ATTEND Hospitalist
DX: R42 Dizziness and giddiness (principal); R55 Syncope and collapse; R06.02 Shortness of breath; E11.22 Type 2 diabetes mellitus with diabetic chronic kidney disease; I12.9 Hypertensive chronic kidney disease with stage 1 through stage 4 chronic kidney disease, or unspecified chronic kidney disease; N18.30 Chronic kidney disease, stage 3 unspecified; E78.5 Hyperlipidemia, unspecified; G47.33 Obstructive sleep apnea (adult) (pediatric); K21.9 Gastro-esophageal reflux disease without esophagitis; K44.9 Diaphragmatic hernia without obstruction or gangrene; H40.9 Unspecified glaucoma; M10.9 Gout, unspecified; M19.90 Unspecified osteoarthritis, unspecified site; I25.10 Atherosclerotic heart disease of native coronary artery without angina pectoris; Z95.5 Presence of coronary angioplasty implant and graft; Z79.4 Long term (current) use of insulin; Z79.52 Long term (current) use of systemic steroids; Z94.0 Kidney transplant status; Z79.82 Long term (current) use of aspirin; Z79.899 Other long term (current) drug therapy; Z87.891 Personal history of nicotine dependence; Z98.1 Arthrodesis status; Z88.2 Allergy status to sulfonamides; Z88.5 Allergy status to narcotic agent; Z88.8 Allergy status to other drugs, medicaments and biological substances
CPT/HCPCS: 99285; 36415; 94760; 93005; 93306; 93351; 85379; 83880; 80053; 80048 ×2; 80197; 84484; 85025; 85610; 85730; 81001; 87636; 71046; 93970; 78582; G0378 ×4; A9540; A9567; J7518 ×3; J7512 ×3

== ENCOUNTER 2024-08-23 08:51 | Day surgery (SDC) | payer MEDICARE ==
[2024-08-21 12:08] VITALS: BMI 32.8
[~2024-08-23 08:51] MED LIST changes: -LIDOCAINE 1% 20 ML VIAL (10MG/ML) FOR IV START INTRADERMA PRN; -LIDOCAINE 1% INJ 10MG/ML (20 ML MDV) ONE; -PROPOFOL 10 MG/ML 20 ML VIAL IV ONE
[2024-08-23 09:11] VITALS: TEMP 97.8
[2024-08-23] MEDS: LACTATED RINGERS 1,000 ML IV ONE (09:20)
[2024-08-23 09:22] LABS: Glucose,Whole Blood 95 mg/dL (70-110)
[2024-08-23] MEDS ORDERED: PROPOFOL 10 MG/ML 20 ML VIAL IV ONE (09:23)
--- NOTE | 2024-08-23 09:46 | P.PCN ---
Date of Procedure: 08/23/24 Procedure(s) Performed: BRIEF HISTORY: Patient is a 68-year-old pleasant -[place] female female scheduled for an elective colonoscopy as a part of screening for history of colon polyps PROCEDURE PERFORMED: Colonoscopy snare polypectomy. PREOPERATIVE DIAGNOSIS: Screening for history of colon polyp. IV sedation per Anesthesia. PROCEDURE: After informed consent was obtained, the patient, was brought into the endoscopy unit. IV sedation was administered by Anesthesia under continuous monitoring. Digital rectal examination was normal. Initially the Olympus CF-160 flexible video colonoscope was then inserted in the rectum, gradually advanced into the cecum without any difficulty. Careful examination was performed as the scope was gradually being withdrawn. Ileocecal valve and the appendiceal orifice were visualized and appeared normal. Prep was excellent. Mucosa of the cecum normal. In the ascending colon there was a 1 cm polyp removed by snare polypectomy. Rest of the, ascending colon, transverse colon, normal. The descending colon at 55 cm from the anal verge there was a 1.5 cm thick pedunculated polyp removed by snare polypectomy. Adjacent to this area there was a 5 mm polyp that was removed by snare polypectomy. Rest of the descending colon, sigmoid colon, and rectum appeared normal. Retroflexion was performed in the rectum and no lesions were seen. The patient tolerated the procedure well. IMPRESSION: 1 cm ascending colon polyp status post snare polypectomy 5 mm and 1.5 cm pedunculated ascending colon polyp status post polypectomy RECOMMENDATIONS: Findings of this examination were discussed with the patient as well as her family. She was advised to follow-up with the biopsy results. If the biopsy reveals adenoma she can have repeat colonoscopy in 3 years..
[2024-08-23 10:01] VITALS: RESP 16
[2024-08-23 10:18] VITALS: BP 131/71; PULSE 55
== END 2024-08-23 10:38 | disposition home or self-care (01) ==
LOC: ORWHC2ENDO 08:51
PROVIDERS: ATTEND Internal Medicine Gastroenterology
DX: Z12.11 Encounter for screening for malignant neoplasm of colon (principal); D12.2 Benign neoplasm of ascending colon; D12.4 Benign neoplasm of descending colon; I10 Essential (primary) hypertension; E78.5 Hyperlipidemia, unspecified; G47.33 Obstructive sleep apnea (adult) (pediatric); E11.9 Type 2 diabetes mellitus without complications; N28.9 Disorder of kidney and ureter, unspecified; Z88.5 Allergy status to narcotic agent; Z86.0100 Personal history of colon polyps, unspecified; Z88.2 Allergy status to sulfonamides; Z88.8 Allergy status to other drugs, medicaments and biological substances; Z79.82 Long term (current) use of aspirin; Z79.899 Other long term (current) drug therapy; Z90.49 Acquired absence of other specified parts of digestive tract; Z98.890 Other specified postprocedural states; Z98.51 Tubal ligation status
CPT/HCPCS: 45385; J2704; 88305

== ENCOUNTER → 2024-09-11 | Outpatient (CLI) | payer MEDICARE ==
[2024-09-11 16:00] LABS: Chol/HDL Ratio 3.18 Ratio
[2024-09-11 16:01] LABS: ALT 16 U/L (8-44); AST 15 U/L (13-35); Albumin 4.1 g/dL (3.8-4.9); Albumin/Globulin Ratio 1.58 Ratio (1.60-3.17); Alkaline Phosphatase 99 U/L (41-126); Bilirubin, Conjugated <0.20 mg/dL (0.20-0.40); Bilirubin,Unconjugated >0.20 mg/dL (0.20-1.00); Blood Urea Nitrogen 16.2 mg/dL (9.0-27.0); Carbon Dioxide 26.4 mmol/L (21.6-31.8); Chloride 105 mmol/L (96-109); Globulin 2.6 g/dL (1.6-3.3); Glucose 102 mg/dL (70-110); Magnesium 1.7 mg/dL (1.5-2.4); Phosphorus 3.1 mg/dL (2.4-5.1); Sodium 142 mmol/L (135-145); Total Bilirubin 0.4 mg/dL (0.3-1.2); Total Protein 6.7 g/dL (6.2-8.2); Uric Acid 4.4 mg/dL (2.9-7.7)
[2024-09-11 17:02] LABS: Basophils # (A) 0.03 X 10*3/uL (0.00-0.10); Basophils % (A) 0.5 %; Eosinophils # (A) 0.07 X 10*3/uL (0.04-0.35); Eosinophils % (A) 1.2 %; HCT 43.5 % (37.2-46.3); HGB 13.5 g/dL (12.0-15.0); Immature Platelet Fraction 14.5 % (1.1-6.1); Lymphocytes # (A) 0.73 X 10*3/uL (0.90-5.00); Lymphocytes % (A) 12.4 %; MCH 28.1 pg (27.0-32.0); MCV 90.6 FL (80.0-97.0); Monocytes % (A) 11.8 %; NRBC Per 100 WBC 0 X 10*3/uL (0.00-0.01); Neutrophils # (A) 4.35 X 10*3/uL (1.80-7.70); Neutrophils % (A) 73.6 %; RDW 14.3 % (11.5-14.5); WBC 5.91 X 10*3/uL (4.50-10.00)
[2024-09-12 14:02] LABS: Tacrolimus (FK506) 4.8 ng/mL (5.0-20.0)
[2024-09-12 14:46] LABS: BK Virus DNA PCR, Qualitative Not detected (Not detected); BKV DNA (PCR), Quant <125 Copies/mL (<125); LOG BKV Copies/mL <2.10 (<2.10)
== END | disposition home or self-care (01) ==
LOC: LABWHC1 09:41
PROVIDERS: ATTEND Internal Medicine Nephrology
DX: R73.01 Impaired fasting glucose (principal); Z94.0 Kidney transplant status
CPT/HCPCS: 36415; 80053; 80061; 80197; 82248; 83036; 83735; 84100; 84550; 85025

== ENCOUNTER → 2024-09-14 | Outpatient (CLI) | payer MEDICARE ==
[2024-09-14 11:25] LABS: HCT 46.2 % (34.0-46.0); HGB 14.1 gm/dL (11.4-16.0); Hypochromasia Moderate; MCH 27.5 pg (25.0-35.0); MCHC 30.6 g/dL (31.0-37.0); MCV 89.9 fL (80.0-100.0); Mean Platelet Volume 10.1; RBC 5.14 m/uL (3.80-5.40); WBC 6.7 k/uL (3.8-10.6)
[2024-09-14 11:33] LABS: Platelet Count 158 k/uL (150-450)
== END | disposition home or self-care (01) ==
LOC: LABWHC1 10:59
PROVIDERS: ATTEND Family Medicine
DX: D64.9 Anemia, unspecified (principal)
CPT/HCPCS: 36415; 85027

== ENCOUNTER → 2024-10-21 | Outpatient (CLI) | payer MEDICARE ==
[2024-10-21 16:07] LABS: ALT 13 U/L (8-44); AST 16 U/L (13-35); Alkaline Phosphatase 99 U/L (41-126); Bilirubin, Conjugated <0.20 mg/dL (0.20-0.40); Blood Urea Nitrogen 12.4 mg/dL (9.0-27.0); Calcium 9.5 mg/dL (8.7-10.3); Carbon Dioxide 25.4 mmol/L (21.6-31.8); Chloride 106 mmol/L (96-109); Chol/HDL Ratio 2.53 Ratio; Globulin 2.5 g/dL (1.6-3.3); Glucose 91 mg/dL (70-110); LDL Cholesterol,Calculated 68.8 mg/dL (0.0-131.0); Magnesium 1.8 mg/dL (1.5-2.4); Phosphorus 2.4 mg/dL (2.4-5.1); Potassium 4.2 mmol/L (3.5-5.5); Sodium 141 mmol/L (135-145); Total Bilirubin 0.3 mg/dL (0.3-1.2); Total Protein 6.5 g/dL (6.2-8.2); Uric Acid 3.7 mg/dL (2.9-7.7); VLDL Calculation 19.58 mg/dL (5.00-40.00)
[2024-10-21 16:09] LABS: Bilirubin,Unconjugated >0.1 mg/dL (0.2-1.0)
[2024-10-21 17:05] LABS: Basophils # (A) 0.03 X 10*3/uL (0.00-0.10); Basophils % (A) 0.6 %; Eosinophils # (A) 0.11 X 10*3/uL (0.04-0.35); Eosinophils % (A) 2.1 %; HCT 42.9 % (37.2-46.3); HGB 13.1 g/dL (12.0-15.0); Lymphocytes # (A) 0.58 X 10*3/uL (0.90-5.00); MCH 28.1 pg (27.0-32.0); MCHC 30.5 g/dL (32.0-37.0); MCV 92.1 FL (80.0-97.0); Mean Platelet Volume 12.7 FL (9.5-12.2); Monocytes # (A) 0.56 X 10*3/uL (0.20-1.00); Monocytes % (A) 10.6 %; NRBC Per 100 WBC 0 X 10*3/uL (0.00-0.01); Neutrophils # (A) 3.99 X 10*3/uL (1.80-7.70); Neutrophils % (A) 75.3 %; Platelet Count 123 X 10*3/uL (140-440); RBC 4.66 X 10*6/uL (4.10-5.20); RDW 14.6 % (11.5-14.5); WBC 5.29 X 10*3/uL (4.50-10.00)
[2024-10-22 10:14] LABS: BK Virus DNA PCR, Qualitative Not detected (Not detected); BKV DNA (PCR), Quant <125 Copies/mL (<125); LOG BKV Copies/mL <2.10 (<2.10)
[2024-10-22 14:22] LABS: Tacrolimus (FK506) 4.1 ng/mL (5.0-20.0)
== END | disposition home or self-care (01) ==
LOC: LABWHC1 09:26
PROVIDERS: ATTEND Internal Medicine Nephrology
DX: R73.01 Impaired fasting glucose (principal); Z94.0 Kidney transplant status
CPT/HCPCS: 36415; 80053; 80061; 80197; 82248; 83036; 83735; 84100; 84550; 85025